=== PATIENT | female | born 1985 | race Caucasian/White ===

== ENCOUNTER 2016-11-19 16:28 | Emergency (ER) | payer OTHER ==
[~2016-11-19] VITALS: Ht 157.5 cm; Wt 93.1 kg
[~2016-11-19 16:28] MED LIST: IBUP600T44 PO; LORA-741 PO
[2016-11-19 16:31] VITALS: Ht 157.5 cm; Wt 93.1 kg
[2016-11-19] MEDS ORDERED: MoRPHine SULFATE 4 MG/ML 1 ML CARP\\VIAL IV STA (17:26)
[2016-11-19] MEDS ORDERED: ONDANSETRON INJ 2 MG/ML 2 ML VIAL IV STA (17:26)
[2016-11-19 17:47] LABS: BASO % 0.2 %; BASO ABS # 0.03 K/uL (0-0.2); COMPLETE YES; EOS % 0.8 %; HEMATOCRIT 38.9 % (37-47); IG% 0.2 %; LYMPH % 25.5 %; LYMPH ABS # 3.61 K/uL (1.2-3.4); MEAN CELL VOLUME 89.2 fL (80-100); MEAN CORPUSCULAR HEMOGLOBIN 29.6 pg (25-34); MEAN CORPUSCULAR HGB CONC 33.2 g/dl (32-36); MONO % 4.4 %; NEUT % 68.9 %; PLATELET COUNT 351 K/uL (130-400); RED BLOOD COUNT 4.36 M/uL (4.2-5.4); WHITE BLOOD COUNT 14.18 K/uL (4.8-10.8)
[2016-11-19 17:49] LABS: URINE APPEARANCE CLEAR (CLEAR); URINE BILIRUBIN NEG (NEG); URINE COLOR YELLOW; URINE NITRITE NEG (NEG); URINE PH 5.5 (4.5-7.5); URINE SPECIFIC GRAVITY 1.001 (1.000-1.030); UROBILINOGEN NEG (NEG)
[2016-11-19 17:51] LABS: MANUAL MICROSCOPIC REQUIRED? NO; REVIEW REQ? NO
[2016-11-19 18:06] LABS: ALT/SGPT 33 U/L (12-78); AST/SGOT 22 U/L (15-37); BLOOD UREA NITROGEN 12 mg/dl (7-18); BUN/CREATININE RATIO 16.4 (10-20); CALCIUM 8.8 mg/dl (8.5-10.1); CARBON DIOXIDE 28 mmol/L (21-32); CHLORIDE 105 mmol/L (98-107); CREATININE 0.75 mg/dl (0.60-1.20); GLUCOSE 119 mg/dl (70-99); POTASSIUM 3.7 mmol/L (3.5-5.1); SODIUM 141 mmol/L (136-145)
[2016-11-19 18:08] LABS: ALKALINE PHOSPHATASE 78 U/L (45-117)
--- NOTE | 2016-11-19 18:40 | DIAGNOSTIC IMAGING REPORT ---
Right upper quadrant ultrasound GALLBLADDER-ABD LIMITED CLINICAL HISTORY: eval for biliary obstruction pain. Nausea. TECHNIQUE: Ultrasound COMPARISON STUDY: None FINDINGS: Very limited study due to patient body habitus. Fatty infiltration of liver. Prior cholecystectomy. Nondiagnostic evaluation of the biliary ductal system. Nondiagnostic study of the pancreas. Right kidney is negative for hydronephrosis. IMPRESSION: Near nondiagnostic study due to patient body habitus and overlying bowel content. Fatty infiltration of liver. . Prior cholecystectomy. Electronically signed by: Roaul Ryan M.D. 11/19/2016 6:38 PM
[2016-11-19 19:00] VITALS: TEMP 36.9
[2016-11-19 19:14] VITALS: BP 124/63; PULSE 91; O2SAT 96
--- NOTE | 2016-11-19 23:06 | EMERGENCY ROOM VISIT NOTE ---
History Report prepared by Jenny: Val Lopez Under the Supervision of: Dr. Adalberto Verduzco M.D. First contact with patient: 17:18 Chief Complaint: ABDOMINAL PAIN Stated Complaint: UPPER ABDOMINAL PAIN Nursing Triage Summary: Pt c/o RUQ abd pain x 2 weeks, worsening over the past few days. Nausea and Vomiting. Gallbladder removed in 2005, 2011 bile duct closed and they had to reopen it. History of Present Illness The patient is a 31 year old female who presents to the Emergency Room with complaints of constant burning abdominal pain beginning 3 days ago. The patient states that her pain has been on and off for about 2 weeks and over the last 3 days it has been constant burning with occasional shooting pain in her belly button. She reports that she had a cholecystectomy and had her biliary duct flushed out in 2011. She states that her pain was more sudden in 2011 than it has been this time. The patient notes associated chills and yellow diarrhea. She denies any vomiting, fever, urinary symptoms, chance of being , abnormal vaginal discharge or bleeding. She states that eating does not worsen her pain. Source of History: patient Onset: 3 days ago Position: abdomen Quality: burning Timing: constant Associated Symptoms: + chills, + diarrhea (yellow), No fevers, No urinary symptoms, No vomiting Note: She denies any chance of being , abnormal vaginal discharge or bleeding. Review of Systems See HPI for pertinent positives & negatives. A total of 10 systems reviewed and were otherwise negative. Past Medical & Surgical Medical Problems: (1) Calculus Of Ureter (2) Choledochlith Nos W Obst (3) Concussion (4) Dental caries (5) Endometriosis (6) Kidney stone (7) Pelvic pain (8) UTI (lower urinary tract infection) Surgical Problems: (1) History of cholecystectomy (2) History of ERCP (3) Hx of laparoscopy Social History Problems: (1) Atrial fibrillation Family History No significant family history Social History Smoking Status: Former Smoker Alcohol Use: none Drug Use: none Marital Status: Housing Status: lives with family Occupation Status: employed Current/Historical Medications No Active Prescriptions or Reported Meds Allergies Coded Allergies: No Known Allergies (Verified , 11/19/16) Physical Exam Vital Signs Date Time Temp Pulse Resp B/P Pulse Ox O2 Delivery O2 Flow Rate FiO2 11/19/16 19:14 91 16 124/63 96 11/19/16 19:00 36.9 91 16 124/63 96 Room Air 11/19/16 16:31 36.8 107 18 126/81 99 Room Air Physical Exam Constitutional: Vital signs reviewed. Eyes: Pupils are equal round reactive to light. Conjunctiva are noninjected. ENT: Pharynx is clear without erythema or exudate. Mucous membranes are moist. Neck supple without meningeal signs. Respiratory: Clear to auscultation bilaterally. Breath sounds are equal bilaterally. Cardiovascular: Regular rate and rhythm. No rubs or gallops. GI: Soft, nondistended with right upper quadrant tenderness. No tenderness in the lower abdomen. Bowel sounds are present. Musculoskeletal: No peripheral edema. Minimal right CVA tenderness. Integumentary: No cyanosis. No jaundice. Neurological: The patient is awake and alert. No focal deficits. Psychiatric: Normal affect. Medical Decision & Procedures ER Provider Diagnostic Interpretation: US results as stated below per my review and radiologist interpretation. Right upper quadrant ultrasound GALLBLADDER-ABD LIMITED FINDINGS: Very limited study due to patient body habitus. Fatty infiltration of liver. Prior cholecystectomy. Nondiagnostic evaluation of the biliary ductal system. Nondiagnostic study of the pancreas. Right kidney is negative for hydronephrosis. IMPRESSION: Near nondiagnostic study due to patient body habitus and overlying bowel content. Fatty infiltration of liver. . Prior cholecystectomy. Electronically signed by: Raoul Ryan M.D. 11/19/2016 6:38 PM Laboratory Results 11/19/16 17:35 Red Blood Count 4.36, Mean Corpuscular Volume 89.2, Mean Corpuscular Hemoglobin 29.6, Mean Corpuscular Hemoglobin Concent 33.2, Mean Platelet Volume 11.0, Neutrophils (%) (Auto) 68.9, Lymphocytes (%) (Auto) 25.5, Monocytes (%) (Auto) 4.4, Eosinophils (%) (Auto) 0.8, Basophils (%) (Auto) 0.2, Neutrophils # (Auto) 9.77, Lymphocytes # (Auto) 3.61, Monocytes # (Auto) 0.62, Eosinophils # (Auto) 0.12, Basophils # (Auto) 0.03 11/19/16 17:35 Test 11/19/16 17:35 White Blood Count 14.18 K/uL (4.8-10.8) Red Blood Count 4.36 M/uL (4.2-5.4) Hemoglobin 12.9 g/dL (12.0-16.0) Hematocrit 38.9 % (37-47) Mean Corpuscular Volume 89.2 fL (80-100) Mean Corpuscular Hemoglobin 29.6 pg (25-34) Mean Corpuscular Hemoglobin Concent 33.2 g/dl (32-36) Platelet Count 351 K/uL (130-400) Mean Platelet Volume 11.0 fL (7.4-10.4) Neutrophils (%) (Auto) 68.9 % Lymphocytes (%) (Auto) 25.5 % Monocytes (%) (Auto) 4.4 % Eosinophils (%) (Auto) 0.8 % Basophils (%) (Auto) 0.2 % Neutrophils # (Auto) 9.77 K/uL (1.4-6.5) Lymphocytes # (Auto) 3.61 K/uL (1.2-3.4) Monocytes # (Auto) 0.62 K/uL (0.11-0.59) Eosinophils # (Auto) 0.12 K/uL (0-0.5) Basophils # (Auto) 0.03 K/uL (0-0.2) RDW Standard Deviation 47.9 fL (36.4-46.3) RDW Coefficient of Variation 14.6 % (11.5-14.5) Immature Granulocyte % (Auto) 0.2 % Immature Granulocyte # (Auto) 0.03 K/uL (0.00-0.02) Urine Color YELLOW Urine Appearance CLEAR (CLEAR) Urine pH 5.5 (4.5-7.5) Urine Specific [place] 1.001 (1.000-1.030) Urine Protein NEG (NEG) Urine Glucose (UA) NEG (NEG) Urine Ketones NEG (NEG) Urine Occult Blood NEG (NEG) Urine Nitrite NEG (NEG) Urine Bilirubin NEG (NEG) Urine Urobilinogen NEG (NEG) Urine Leukocyte Esterase NEG (NEG) Urine Test NEG (NEG) Anion Gap 8.0 mmol/L (3-11) Est Creatinine Clear Calc Drug Dose 117.6 ml/min Estimated GFR () 124.8 Estimated GFR (Non- 107.7 BUN/Creatinine Ratio 16.4 (10-20) Calcium Level 8.8 mg/dl (8.5-10.1) Total Bilirubin 0.2 mg/dl (0.2-1) Direct Bilirubin < 0.1 mg/dl (0-0.2) Aspartate Amino Transf (AST/SGOT) 22 U/L (15-37) Alanine Aminotransferase (ALT/SGPT) 33 U/L (12-78) Alkaline Phosphatase 78 U/L (45-117) Total Protein 8.0 gm/dl (6.4-8.2) Albumin 3.7 gm/dl (3.4-5.0) Lipase 152 U/L (73-393) Laboratory results as reviewed by me. Medications Administered Medications (Trade) Dose Ordered Sig/Demi Route Start Time Stop Time Status Last Admin Dose Admin Morphine Sulfate (MoRPHine SULFATE INJ) 4 mg ONE STAT IV 11/19/16 17:26 11/19/16 17:27 DC 11/19/16 17:42 4 MG Ondansetron HCl (Zofran Inj) 4 mg NOW STAT IV 11/19/16 17:26 11/19/16 17:27 DC 11/19/16 17:41 4 MG ED Course 1718: The patient was evaluated in room C5. A complete history and physical exam was performed. 1726: Zofran Inj 4mg IV, Morphine Sulfate 4mg IV. 1858: I reevaluated the patient. She feels a lot better. We discussed her test results and she will follow up with GI. 1900: Upon reevaluation, the patient appeared to have improvement of her symptoms. I discussed tonight's findings with the patient. She verbalized agreement of the treatment plan. The patient was discharged home. Medical Decision This is a 23-year-old female who presents with right upper quadrant pain. Differential diagnosis includes delirium ductal dilatation, hepatitis, choledocholithiasis, cholangiocarcinoma, pancreatitis, peptic ulcer disease. I did perform a limited focused review of portions of the patient's old chart on the electronic medical record. The patient has had no recent pertinent visits to this hospital. I did evaluate the patient as noted above. IV access was established. I did treat the patient with IV morphine and Zofran. I did order and personally review the patient's urinalysis as described above. I did order and review the patient's blood work as noted in the electronic medical record. Her white blood cell count is slightly elevated. LFTs are unremarkable. Lipase is not elevated. I did order an ultrasound of the right upper quadrant. I did review the images myself as well as the radiology report as described above. This was a nearly nondiagnostic study due to body habitus and bowel artifact. I did reassess the patient. She states she is feeling much better. I did discuss the test results with her and her . She was advised follow closely with her field service supervisor and regular physician. She was advised to return should she have any worsening symptoms or develop any new symptoms as described below. Impression Primary Impression: RUQ abdominal pain Scribe Attestation The scribe's documentation has been prepared under my direct and personally reviewed by me in its entirety. I confirm that the note above accurately reflects all work, treatment, procedures, and medical decision making performed by me. Departure Information Dispostion Home / Self-Care Prescriptions No Active Prescriptions or Reported Meds Referrals Clare Vasquez C.R.N.P (PCP) Forms HOME CARE DOCUMENTATION FORM, IMPORTANT VISIT INFORMATION, My [facility] Patient Instructions A Signature Page, ED Abd Pain Unkn Cause Fem Additional Instructions You have been examined and treated today on an emergency basis only. This is not a substitute for, or an effort to provide, complete comprehensive medical care. It is impossible to recognize and treat all injuries or illnesses in a single emergency department visit. It is therefore important that you follow up closely with your physician and field service supervisor. Call as soon as possible for an appointment. Return for worsening symptoms or if you develop fever, vomiting, or any other concerning symptoms.
[2017-06-08] MEDS ORDERED: HYDR-5688 PO (15:30)
== END 2016-11-19 19:15 | disposition home or self-care (01) ==
LOC: C.EDB 16:30 → C.EDC 19:15
DX: R10.11 Right upper quadrant pain (principal); R19.7 Diarrhea, unspecified

== ENCOUNTER 2016-11-22 09:11 | Emergency (ER) | payer OTHER ==
[~2016-11-22] VITALS: Ht 157.5 cm; Wt 91.5 kg
[2016-11-22 09:13] VITALS: TEMP 37.3; Ht 157.5 cm; Wt 91.5 kg
[2016-11-22] MEDS ORDERED: PROMETHAZINE HCL INJ 25 MG in SODIUM CHLORIDE 0.9% 50ML 50 ML IV STA (09:37)
[2016-11-22] MEDS ORDERED: KETOROLAC TROMETHAMINE 30 MG/ML VIAL IV STA (09:37)
[2016-11-22 10:24] LABS: BASO % 0.1 %; BASO ABS # 0.02 K/uL (0-0.2); COMPLETE YES; EOS % 0.5 %; HEMATOCRIT 41.4 % (37-47); IG% 0.3 %; LYMPH % 7.6 %; LYMPH ABS # 1.04 K/uL (1.2-3.4); MEAN CELL VOLUME 87.3 fL (80-100); MEAN CORPUSCULAR HEMOGLOBIN 28.7 pg (25-34); MEAN CORPUSCULAR HGB CONC 32.9 g/dl (32-36); MONO % 3.8 %; NEUT % 87.7 %; PLATELET COUNT 332 K/uL (130-400); RED BLOOD COUNT 4.74 M/uL (4.2-5.4); WHITE BLOOD COUNT 13.62 K/uL (4.8-10.8)
--- NOTE | 2016-11-22 10:33 | DIAGNOSTIC IMAGING REPORT ---
CHEST 2 VIEWS ROUTINE CLINICAL HISTORY: Right lower chest pain and burning. Nausea. COMPARISON STUDY: Chest CT and chest radiograph August 06, 2016. FINDINGS: There are cholecystectomy clips. Lung volumes are normal. Lungs are clear. No pneumothorax or pleural effusion is present. Cardiac size is normal. Mediastinal contours are normal. There is no evidence of pulmonary edema. IMPRESSION: No acute cardiopulmonary findings. Electronically signed by: Ameya Gee M.D. 11/22/2016 10:31 AM Dictated Date/Time: 11/22/2016 10:31 AM
[2016-11-22 10:42] LABS: CREATININE 0.65 mg/dl (0.60-1.20); POTASSIUM 3.7 mmol/L (3.5-5.1)
[2016-11-22 10:45] LABS: ALB/GLOB RATIO 0.8 (0.9-2)
[2016-11-22] MEDS ORDERED: ONDANSETRON INJ 2 MG/ML 2 ML VIAL IV STA (11:29)
[2016-11-22] MEDS ORDERED: SUCR1TAB29 PO (13:19)
[2016-11-22] MEDS ORDERED: OMEP20CA59 PO (13:19)
[2016-11-22] MEDS ORDERED: PROM25TA9 PO (13:21)
[2016-11-22 13:32] VITALS: BP 122/61; PULSE 106; O2SAT 95
--- NOTE | 2016-11-27 09:27 | EMERGENCY ROOM VISIT NOTE ---
History First contact with patient: 09:23 Chief Complaint: ABDOMINAL PAIN Stated Complaint: UPPER RIGHT QUAD PAIN Nursing Triage Summary: Patient c/o 6/10 RUQ abdominal pain that radiates to back. C/o nausea and vomitting. Was here the other day with abdominal pain. States was not vomitting at that time. History of Present Illness The patient is a 31 year old female who presents to the Emergency Room with complaints of upper abdominal pain that has been present since last night. It is bilateral, right greater than left. She is nauseated and has vomited several times. She was here 3 days ago with similar symptoms but was not vomiting at that time. She previously had a cholecystectomy in 2005. 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 Her current pain feels similar to 2012, but states it came on more suddenly this time. She also notes intermittent diarrhea. She does have chills but no sweats. No UTI symptoms. No vaginal discharge. She has not been able to keep any food or liquid in for the last 24 hours. Her accompanies her today. Pain is 6/10. She had an ultrasound done 3 days ago of the gallbladder which was a nondiagnostic study due to body habitus and overlying bowel. White count was mildly elevated at 14.2. Review of Systems REVIEW OF SYSTEM: HEENT: No dizziness, visual problems, hearing loss, or tinnitus. There is no difficulty swallowing and no oral lesions are present. LYMPH: No adenopathy. PULMONARY: No cough, shortness of breath, sputum production or hemoptysis. CARDIOVASCULAR: No chest pain, palpitations, shortness of breath or peripheral edema. GASTROINTESTINAL: Positive diarrhea, nausea, vomiting, and abdominal pain. GENITOURINARY: No dysuria, frequency, urgency or nocturia. NEUROLOGIC: No weakness, muscle tenderness, epilepsy or history of neurological problems. MUSCULOSKELETAL: No history of joint tenderness/swelling. No history of arthritis or arthralgias. SKIN: No rashes or lesions. PSYCHIATRIC: No history of depression or mental illness. ENDOCRINE: No history of diabetes, thyroid disorders, or abnormal hair growth. Past Medical/Surgical History Medical Problems: (1) Calculus Of Ureter (2) Choledochlith Nos W Obst (3) Concussion (4) Dental caries (5) Endometriosis (6) Kidney stone (7) Pelvic pain (8) UTI (lower urinary tract infection) Surgical Problems: (1) History of cholecystectomy (2) History of ERCP (3) Hx of laparoscopy Social History Problems: (1) Atrial fibrillation Family History No significant family history Social History Smoking Status: Never Smoker Smokeless Tobacco Use: No Alcohol Use: none Drug Use: none Marital Status: Housing Status: lives with family Occupation Status: employed Current/Historical Medications Scheduled Omeprazole (Prilosec), 20 MG PO DAILY Sucralfate (Carafate), 1 TAB PO BIDM Scheduled PRN Promethazine Hcl (Phenergan), 25 MG PO Q6H PRN for Nausea Allergies Coded Allergies: No Known Allergies (Verified , 11/22/16) Physical Exam Vital Signs Date Time Temp Pulse Resp B/P Pulse Ox O2 Delivery O2 Flow Rate FiO2 11/22/16 13:32 106 18 122/61 95 11/22/16 12:44 110 18 121/70 94 Room Air 11/22/16 11:02 104 20 123/70 96 Room Air 11/22/16 09:13 37.3 121 18 122/75 100 Room Air Pain Rating (0-10): 5.0 Physical Exam Gen.: Well-developed, well-nourished, young white female, in obvious discomfort. Laying on a bed. Alert and oriented. Skin:Warm and dry with good turgor. No rashes or lesions. No ecchymosis or erythema. The patient is not diaphoretic. No abrasions. HEENT: Normocephalic atraumatic. Eyes PERRLA, EOMI. No conjunctiva or scleral injection. Nares patent bilaterally without turbinate enlargement. No significant drainage. No epistaxis. Oropharynx without erythema or exudate. Uvula midline, oral mucosa moist. No lesions present. Heart: Heart RRR. No MGR. Peripheral pulses are 2+. Lungs: Lungs are clear to auscultation. No crackles rhonchi or wheezing. Good air movement. The patient is able to take a deep breath. Abdomen: Abdomen was inspected, auscultated, and palpated. Bowel sounds present x 4. Obese. Soft, diffuse tenderness in the epigastric and right upper quadrant areas to palpation. No lower abdominal discomfort with palpation. No hepato- splenomegaly. No masses noted. No rebound. No pain over McBurney's point. No CVA tenderness. Musculoskeletal: Gross motor function of the upper and lower extremities is intact and unremarkable. Medical Decision & Procedures ER Provider Diagnostic Interpretation: Chest x-ray obtained today was read by radiology as unremarkable. Previous cholecystectomy clips are present. Laboratory Results 11/22/16 10:00 Red Blood Count 4.74, Mean Corpuscular Volume 87.3, Mean Corpuscular Hemoglobin 28.7, Mean Corpuscular Hemoglobin Concent 32.9, Mean Platelet Volume 11.0, Neutrophils (%) (Auto) 87.7, Lymphocytes (%) (Auto) 7.6, Monocytes (%) (Auto) 3.8, Eosinophils (%) (Auto) 0.5, Basophils (%) (Auto) 0.1, Neutrophils # (Auto) 11.93, Lymphocytes # (Auto) 1.04, Monocytes # (Auto) 0.52, Eosinophils # (Auto) 0.07, Basophils # (Auto) 0.02 11/22/16 10:00 Test 11/22/16 10:00 White Blood Count 13.62 K/uL (4.8-10.8) Red Blood Count 4.74 M/uL (4.2-5.4) Hemoglobin 13.6 g/dL (12.0-16.0) Hematocrit 41.4 % (37-47) Mean Corpuscular Volume 87.3 fL (80-100) Mean Corpuscular Hemoglobin 28.7 pg (25-34) Mean Corpuscular Hemoglobin Concent 32.9 g/dl (32-36) Platelet Count 332 K/uL (130-400) Mean Platelet Volume 11.0 fL (7.4-10.4) Neutrophils (%) (Auto) 87.7 % Lymphocytes (%) (Auto) 7.6 % Monocytes (%) (Auto) 3.8 % Eosinophils (%) (Auto) 0.5 % Basophils (%) (Auto) 0.1 % Neutrophils # (Auto) 11.93 K/uL (1.4-6.5) Lymphocytes # (Auto) 1.04 K/uL (1.2-3.4) Monocytes # (Auto) 0.52 K/uL (0.11-0.59) Eosinophils # (Auto) 0.07 K/uL (0-0.5) Basophils # (Auto) 0.02 K/uL (0-0.2) RDW Standard Deviation 46.2 fL (36.4-46.3) RDW Coefficient of Variation 14.2 % (11.5-14.5) Immature Granulocyte % (Auto) 0.3 % Immature Granulocyte # (Auto) 0.04 K/uL (0.00-0.02) Anion Gap 10.0 mmol/L (3-11) Est Creatinine Clear Calc Drug Dose 134.4 ml/min Estimated GFR () 139.1 Estimated GFR (Non- 120.0 BUN/Creatinine Ratio 18.0 (10-20) Calcium Level 9.0 mg/dl (8.5-10.1) Total Bilirubin 0.4 mg/dl (0.2-1) Aspartate Amino Transf (AST/SGOT) 26 U/L (15-37) Alanine Aminotransferase (ALT/SGPT) 29 U/L (12-78) Alkaline Phosphatase 77 U/L (45-117) Total Protein 8.4 gm/dl (6.4-8.2) Albumin 3.7 gm/dl (3.4-5.0) Globulin 4.7 gm/dl (2.5-4.0) Albumin/Globulin Ratio 0.8 (0.9-2) Amylase Level 29 U/L (25-115) Lipase 115 U/L (73-393) CBC, amylase, lipase, and chem panel were obtained. White count is slightly improved at 13.6. Chem panel is essentially unremarkable. LFTs are normal. Amylase and lipase are normal. Medications Administered Medications (Trade) Dose Ordered Sig/Demi Route Start Time Stop Time Status Last Admin Dose Admin Promethazine HCl/ Sodium Chloride (Phenergan Inj/ Nss 50ml) 51 ml @ 204 mls/hr NOW STAT IV 11/22/16 09:37 11/22/16 09:51 DC 11/22/16 10:03 204 MLS/HR Ketorolac Tromethamine (Toradol Inj) 30 mg NOW STAT IV 11/22/16 09:37 11/22/16 09:43 DC 11/22/16 10:03 30 MG Ondansetron HCl (Zofran Inj) 4 mg NOW STAT IV 11/22/16 11:29 11/22/16 11:30 DC 1/7/17 11:34 4 MG Phenergan 25 mg IV, Toradol 30 mg IV, Zofran 4 mg IV ED Course Patient and her were educated regarding today's findings. Conservative care measures were discussed. IV was established. Labs were obtained. Chest x -ray was obtained. She just had an ultrasound of the gallbladder done 3 days ago. I do not think any additional imaging is required at this time. White count is slightly improved. She was given Phenergan 25 mg IV with some improvement in her nausea. She had no further vomiting while in the ED. She was given Toradol 30 mg IV for discomfort. There was moderate improvement in pain. She was given Zofran 4 mg IV with better control of her nausea. I did consult Dr. Cary regarding this patient. He recommended patient follow-up with Dr. Balderas, as she had seen him in the 2011 for the previous stricture. No urgent intervention, including ERCP, would be necessary at this time. She is afebrile with a minimal elevation in white count and has a recent normal right upper quadrant ultrasound. He did recommend that she start Carafate 1 tablet twice a day with meals and Prilosec once a day. She was agreeable to the plan. Return to the ED for any acute worsening of symptoms. Start with a bland diet and advance as tolerated. Prescription was given for Phenergan to be used 1 tablet every 6 hours as needed for nausea. Additional prescriptions were provided for the Carafate and Prilosec. Medical Decision Possibility of retained gallstone, duct stricture, pneumonia, cardiac source, bowel obstruction, viral gastroenteritis, and pancreatitis were considered among others Impression Primary Impression: RUQ abdominal pain Departure Information Dispostion Home / Self-Care Condition GOOD Prescriptions Promethazine Hcl (Phenergan) 25 Mg Tab 25 MG PO Q6H Y for Nausea, #12 TAB Prov: Yuval Salazar,P.A. 11/22/16 Omeprazole (Prilosec) 20 Mg Capcr 20 MG PO DAILY for 10 Days, #10 CAP Prov: Yuval Salazar,P.A. 11/22/16 Sucralfate (CARAFATE) 1 Gm Tab 1 TAB PO BIDM for 10 Days, #20 TAB 1 Refill Prov: Yuval Salazar,P.A. 11/22/16 Referrals Clare Vasquez C.R.N.P (PCP) Piter Balderas M.D. Forms HOME CARE DOCUMENTATION FORM, My [facility], IMPORTANT VISIT INFORMATION Patient Instructions A Signature Page Additional Instructions Start Carafate 1 tablet twice a day with meals Start Prilosec once a day Call Dr. Balderas on Thursday for follow-up this week Return to the ED for any acute worsening of symptoms Carver diet-advance as tolerated Phenergan 1 tablet every 6 hours as needed for nausea
[2017-06-08] MEDS ORDERED: HYDR-5688 PO (15:30)
== END 2016-11-22 13:35 | disposition home or self-care (01) ==
LOC: C.EDB 09:12
DX: R10.11 Right upper quadrant pain (principal); R11.2 Nausea with vomiting, unspecified; N80.9 Endometriosis, unspecified; Z87.448 Personal history of other diseases of urinary system; Z87.820 Personal history of traumatic brain injury; Z87.440 Personal history of urinary (tract) infections; Z90.6 Acquired absence of other parts of urinary tract

== ENCOUNTER 2017-02-03 08:46 | Emergency (ER) | payer OTHER ==
[~2017-02-03] VITALS: Ht 157.5 cm; Wt 90.0 kg
[~2017-02-03 08:46] MED LIST changes: -IBUP600T44 PO; -LORA-741 PO; +PROM25TA9 PO; +SUCR1TAB29 PO
[2017-02-03 08:53] VITALS: TEMP 36.6; Ht 157.5 cm; Wt 90.0 kg
[2017-02-03] MEDS ORDERED: IBUP-1050 PO (09:18)
[2017-02-03] MEDS ORDERED: PENI-82 PO (09:22)
[2017-02-03] MEDS ORDERED: HYDR-5688 PO (09:23)
--- NOTE | 2017-02-03 09:24 | EMERGENCY ROOM VISIT NOTE ---
ED Visit Note First contact with patient: 08:51 CHIEF COMPLAINT: Toothache HISTORY OF PRESENT ILLNESS: This 32-year-old female patient presented to the emergency department ambulatory with a progressive toothache for past 4 days. The patient believes it is coming from her left upper back molar. The pain is now steady and severe and radiates to the face. The patient has a dentist appointment set up approximately 2 weeks from now. They rate their pain a 7/10 and the ibuprofen and Tylenol they have been taking has not relieved the pain. Denies facial swelling or fever. The patient denies any discharge from the mouth. REVIEW OF SYSTEMS: A 6 system review of systems was completed with positives and pertinent negatives listed in the HPI. ALLERGIES: No known drug allergies MEDICATIONS: No chronic medications PMH: No significant past medical history. SOCIAL HISTORY: The patient was locally with her . Nonsmoker, denies alcohol use. PHYSICAL EXAM: Vitals are noted on the nurse's note and reviewed by myself. Vital signs stable. Temperature 36.6C orally. GENERAL: This is a 32-year-old female, in no acute distress, nondiaphoretic, well-developed well-nourished. Mouth: The left upper back molar tooth is very carious and the gum is swollen and tender around it, without any discharge or signs of an abscess. The remainder of the pharynx and tonsils are without erythema, edema, or exudate. The airway is patent. There is no facial swelling, cervical or submandibular lymphadenopathy. The patient appears uncomfortable and in pain. The patient has overall average dental hygiene. EARS: External auditory canals clear, tympanic membranes pearly ceja without erythema or effusion bilaterally. ED COURSE: The patient was evaluated as above. She was placed on penicillin for possible dental infection. She was given a prescription for [place]. The PDMP was queried and no red flags were identified. She was instructed that she must follow-up with a dentist for definitive care of her dental pain. The patient verbalized her understanding of my assessment and treatment plan and was discharged home in good condition. DIAGNOSIS: Odontalgia Problem List Medical Problems: (1) Calculus Of Ureter Status: Resolved (2) Chol[place]ochlith Nos W Obst Status: Resolved (3) Concussion Status: Resolved (4) Dental caries Status: Resolved (5) Endometriosis Status: Chronic (6) Kidney stone Status: Resolved (7) Pelvic pain Status: Resolved (8) UTI (lower urinary tract infection) Status: Resolved Surgical Problems: (1) History of cholecystectomy Status: Resolved (2) History of ERCP Status: Resolved (3) Hx of laparoscopy Status: Resolved Social History Problems: (1) Atrial fibrillation Status: Resolved Current/Historical Medications Scheduled Ibuprofen (Advil), 400-600 MG PO Q6H Penicillin V Potassium (Veetids), 500 MG PO QID Scheduled PRN Hydrocodone/Acetaminophen 5MG/325MG ([place] 5MG/325MG), 1-2 TABLET PO Q4H PRN for Pain Allergies Coded Allergies: No Known Allergies (Verified , 02/03/17) Vital Signs Date Time Temp Pulse Resp B/P Pulse Ox O2 Delivery O2 Flow Rate FiO2 02/03/17 09:32 77 18 130/79 96 02/03/17 08:53 36.6 87 18 159/80 99 Room Air Departure Information Impression Primary Impression: Dental caries Dispostion Home / Self-Care Condition GOOD Prescriptions Hydrocodone/Acetaminophen 5MG/325MG ([place] 5MG/325MG) Tab 1-2 TABLET PO Q4H Y for Pain, #10 TAB For Initial Treatment Prov: Cayla Odom PA-C 02/03/17 Penicillin V Potassium (Veetids) 500 Mg Tab 500 MG PO QID, #40 TAB Prov: Cayla Odom PA-C 02/03/17 Referrals Clare Vasquez C.R.N.P (PCP) Patient Instructions My [facility] Additional Instructions You have been treated in the Emergency Department for Dental Pain. You have been prescribed [place] to be used for pain control. This is a narcotic medication. You cannot drive or consume alcohol while on this medicine. This medicine should only be used for pain that cannot be controlled with over-the- counter pain medicines. You were prescribed Pen VK to be taken as prescribed. This is an antibiotic. All antibiotics have the potential to cause diarrhea. Stop this medication and contact a medical provider if you were to develop any significant adverse side effects including: wheezing, shortness of breath, passing out, vomiting, or a diffuse rash. Always take antibiotics as directed and COMPLETE the ENTIRE course regardless of the improvement of your symptoms. For pain control, you can use the following [id number] medicines (if >12 yo): - Regular strength (325mg/tab) Tylenol (acetaminophen) 2 tabs every 4-6 hours as needed. Do not exceed 12 tablets in a 24 hour period. Avoid taking more than 4 grams (4000 mg) of Tylenol per day. This includes any other sources of acetaminophen you may take on a regular basis. - Regular strength (200 mg/tab) Advil (ibuprofen) 1-2 tabs every 4-6 hours as needed. Do not exceed a dose of 3200 mg per day. Refrain from smoking cigarettes or using chewing tobacco until you have been evaluated by your dentist. Keeping beverages lukewarm and consuming soft foods can decrease your pain. Warm compresses over the affected area may offer some relief. You MUST seek evaluation of your dental pain by a dentist following your visit to the Emergency Department. The Emergency Department is not capable of treating dental issues long-term. You should call your dentist as soon as possible to make an appointment for evaluation of your dental pain. Return to the emergency department if you develop the following symptoms despite treatment course outlined above: fever, intractable pain, increased redness, swelling, or purulent discharge.
[2017-02-03 09:32] VITALS: BP 130/79; PULSE 77; O2SAT 96
[2017-06-08] MEDS ORDERED: HYDR-5688 PO (15:30)
== END 2017-02-03 09:33 | disposition home or self-care (01) ==
LOC: C.EDB 08:47 → C.EDA 09:33
DX: K02.9 Dental caries, unspecified (principal); N80.9 Endometriosis, unspecified

== ENCOUNTER 2017-03-20 20:58 | Emergency (ER) | payer OTHER ==
[~2017-03-20] VITALS: Ht 157.5 cm; Wt 92.8 kg
[~2017-03-20 20:58] MED LIST changes: +HYDR-5688 PO; +IBUP-1050 PO; +PENI-82 PO; -PROM25TA9 PO; -SUCR1TAB29 PO
[2017-03-20 21:04] VITALS: TEMP 36.6; Ht 157.5 cm; Wt 92.8 kg
[2017-03-20] MEDS ORDERED: AMOXICILLIN 500 MG CAP PO STA (21:22)
[2017-03-20] MEDS ORDERED: HYDROCODONE/ACETAMOPHEN 5/325MG TAB PO STA (21:22)
[2017-03-20] MEDS ORDERED: NORCO 5/325MG HOME PACK PO ONE (21:30)
--- NOTE | 2017-03-20 21:37 | EMERGENCY ROOM VISIT NOTE ---
ED Visit Note First contact with patient: 21:15 CHIEF COMPLAINT: Tooth abscess HISTORY OF PRESENT ILLNESS: This 32-year-old female presents the ER with chief complaint of tooth pain and dental abscess. The patient states that she was seen at her dentist last Thursday for the same symptoms. At that time the abscess was much larger and she had left-sided facial swelling. The patient states that her dentist did not drain the abscess placed her on amoxicillin for 10 days. She states that the lump was completely gone at that she noticed it again yesterday and it has been getting progressively more painful and larger. She called her dentist today and she was instructed to come to the emergency room. REVIEW OF SYSTEMS: 6 system review was performed and was negative unless stated otherwise in history of present illness. PMH: The patient is healthy; kidney stones, cholecystectomy, endometriosis SOCIAL HISTORY: Patient lives with her and children. The patient denies any tobacco or alcohol use. PHYSICAL EXAM: Vital Signs: Were reviewed Reviewed Nurse's notes. GENERAL: 32- year-old white female appears in no acute distress. MENTAL Status: Alert and oriented 3. FACE: No erythema or edema noted. MOUTH: Left upper tooth with tenderness to percussion and a. There is a palpable firm lump superior and medial to the tooth . There is no central fluctuance. NECK: Supple, no lymphadenopathy noted EMERGENCY COURSE: The patient was evaluated. The patient was given [place] 5/325 mg 2 tablet by mouth for pain while in the emergency room. She was given a [place] home pack to take this evening if needed. She was given amoxicillin 500 mg by mouth while in the ER. The patient was discharged home in stable condition. DIAGNOSIS: Dental caries/dental abscess DISCHARGE INSTRUCTIONS & TREATMENT: Take amoxicillin as prescribed. Ibuprofen 600 mg every 6 hours with food for pain. Take [place] as needed for more severe pain. Do not drive while taken the [place]. Warm compresses to the left side of the face frequently. Follow-up with your dentist for definitive care. Problem List Medical Problems: (1) Calculus Of Ureter Status: Resolved (2) Choledochlith Nos W Obst Status: Resolved (3) Concussion Status: Resolved (4) Dental caries Status: Resolved (5) Endometriosis Status: Chronic (6) Kidney stone Status: Resolved (7) Pelvic pain Status: Resolved (8) UTI (lower urinary tract infection) Status: Resolved Surgical Problems: (1) History of cholecystectomy Status: Resolved (2) History of ERCP Status: Resolved (3) Hx of laparoscopy Status: Resolved Social History Problems: (1) Atrial fibrillation Status: Resolved Current/Historical Medications Scheduled Ibuprofen (Advil), 400-600 MG PO Q6H Penicillin V Potassium (Veetids), 500 MG PO QID Scheduled PRN Hydrocodone/Acetaminophen 5MG/325MG ([place] 5MG/325MG), 1-2 TABLET PO Q4H PRN for Pain Allergies Coded Allergies: No Known Allergies (Verified , 02/03/17) Vital Signs Date Time Temp Pulse Resp B/P Pulse Ox O2 Delivery O2 Flow Rate FiO2 03/20/17 21:04 36.6 87 18 143/86 98 Room Air Departure Information Referrals Clare Vasquez C.R.N.P (PCP) Patient Instructions My [facility]
[2017-03-20] MEDS ORDERED: HYDR-5688 PO (21:39)
[2017-03-20] MEDS ORDERED: AMOX500C3 PO (21:39)
[2017-03-20] MEDS ORDERED: AMOXICILLIN 250 MG CAP PO ONE (21:48)
[2017-03-20 22:04] VITALS: BP 135/80; PULSE 101; O2SAT 98
[2017-06-08] MEDS ORDERED: HYDR-5688 PO (15:30)
== END 2017-03-20 22:04 | disposition home or self-care (01) ==
LOC: C.EDB 21:00 → C.EDD 22:04
DX: K02.9 Dental caries, unspecified (principal); K04.7 Periapical abscess without sinus; N80.9 Endometriosis, unspecified; Z87.442 Personal history of urinary calculi

== ENCOUNTER → 2017-05-14 | Outpatient (CLI) | payer OTHER ==
[2017-05-14 13:20] LABS: BASO % 0.3 %; BASO ABS # 0.03 K/uL (0-0.2); COMPLETE YES; EOS % 0.8 %; HEMATOCRIT 39.5 % (37-47); IG% 0.1 %; LYMPH % 32.4 %; LYMPH ABS # 3.45 K/uL (1.2-3.4); MEAN CELL VOLUME 89.8 fL (80-100); MEAN CORPUSCULAR HEMOGLOBIN 28.4 pg (25-34); MEAN CORPUSCULAR HGB CONC 31.6 g/dl (32-36); MEAN PLATELET VOLUME 11.3 fL (7.4-10.4); MONO % 3.8 %; NEUT % 62.6 %; PLATELET COUNT 387 K/uL (130-400); WHITE BLOOD COUNT 10.66 K/uL (4.8-10.8)
== END | disposition home or self-care (01) ==
LOC: C.LAB1850 12:04
PROVIDERS: ATTEND Obstetrics & Gynecology
DX: N80.9 Endometriosis, unspecified (principal); Z01.812 Encounter for preprocedural laboratory examination

== ENCOUNTER 2017-06-08 05:20 | Observation (INO) | payer OTHER ==
[2017-05-14 13:20] LABS: BASO % 0.3 %; BASO ABS # 0.03 K/uL (0-0.2); COMPLETE YES; EOS % 0.8 %; HEMATOCRIT 39.5 % (37-47); IG% 0.1 %; LYMPH % 32.4 %; LYMPH ABS # 3.45 K/uL (1.2-3.4); MEAN CELL VOLUME 89.8 fL (80-100); MEAN CORPUSCULAR HEMOGLOBIN 28.4 pg (25-34); MEAN CORPUSCULAR HGB CONC 31.6 g/dl (32-36); MEAN PLATELET VOLUME 11.3 fL (7.4-10.4); MONO % 3.8 %; NEUT % 62.6 %; PLATELET COUNT 387 K/uL (130-400); WHITE BLOOD COUNT 10.66 K/uL (4.8-10.8)
[2017-05-25 08:00] VITALS: BMI 36.0
[~2017-06-08] VITALS: Ht 157.5 cm; Wt 92.0 kg
[2017-06-08] VITALS (10 sets, daily range): BP systolic 91–131; BP diastolic 63–79; PULSE 64–100; TEMP 36.6–36.8; O2SAT 96–98; Ht 157.5 cm; Wt 92.0 kg
[~2017-06-08 05:20] MED LIST changes: -HYDR-5688 PO; -IBUP-1050 PO; -PENI-82 PO; +PERCOCET HOME PACK PO SCH
[2017-06-08] MEDS: LACTATED RINGER'S 1000ML 1,000 ML IV SCH ×2 (05:56→14:00)
[2017-06-08] MEDS ORDERED: CEFAZOLIN 2000 MG/60 ML D5W 50 ML IV SCH (06:00)
[2017-06-08] MEDS ORDERED: LACTATED RINGER'S 1000ML 1,000 ML IV SCH ×2 (06:00→11:00)
[2017-06-08] MEDS ORDERED: DEXAMETHASONE SOD INJ 4 MG/ML VIAL IV PRN (06:30)
[2017-06-08] MEDS ORDERED: SCOPOLAMINE 1.5 MG TDSY TD ONE ×2 (06:30→06:58)
[2017-06-08] MEDS ORDERED: PROMETHAZINE HCL INJ 12.5 MG in SODIUM CHLORIDE 0.9% 50ML 50 ML IV PRN ×2 (06:30→09:15)
[2017-06-08] MEDS ORDERED: ATROPINE SULFATE 0.1 MG/ML 5ML SYR IV PRN (06:30)
[2017-06-08] MEDS ORDERED: HYDROmorphone INJ 1 MG/ML SYR IV PRN (06:30)
[2017-06-08] MEDS ORDERED: EpHEDrine SULFATE INJ 50 MG/ML AMP IV PRN (06:30)
[2017-06-08] MEDS ORDERED: ONDANSETRON INJ 2 MG/ML 2 ML VIAL IV PRN ×2 (06:30→09:15)
--- NOTE | 2017-06-08 06:57 | History & Physical Bridge Note ---
H&P Re-Evaluation Bridge Note: I have examined the patient, reviewed the History & Physical and in the interval since the performance of the History & Physical I have noted the following changes of clinical significance: No changes noted
[2017-06-08] MEDS ORDERED: GLYCOPYRROLATE INJ 0.2 MG/ML VIAL ONE (07:06)
[2017-06-08] MEDS ORDERED: MIDAZOLAM HCL 1 MG/ML 2ML VIAL ONE (07:06)
[2017-06-08] MEDS ORDERED: LIDOCAINE HCL 2% 2 ML VIAL (20MG/ML) ONE (07:06)
[2017-06-08] MEDS ORDERED: PROPOFOL IV EMULSION 10 MG/ML 20 ML VIAL IV ONE (07:06)
[2017-06-08] MEDS ORDERED: FENTANYL CITRATE INJ 50 MCG/1 ML 2 ML VIAL ONE ×3 (07:06→08:52)
[2017-06-08] MEDS ORDERED: DEXAMETHASONE SOD INJ 4 MG/ML VIAL ONE (07:06)
[2017-06-08] MEDS ORDERED: ROCURONIUM BROMIDE 10 MG/ML 5 ML VIAL ONE (07:06)
[2017-06-08] MEDS ORDERED: ONDANSETRON INJ 2 MG/ML 2 ML VIAL ONE (07:06)
[2017-06-08] MEDS ORDERED: NEOSTIGMINE METHYLSULFATE 5 MG/5 ML SYR ONE (07:06)
[2017-06-08] MEDS ORDERED: ACETAMINOPHEN 1000 MG/100 ML IV IV ONE (07:14)
[2017-06-08] MEDS ORDERED: CHECK SCOPOLAMINE PATCH PLACEMENT SCH (08:00)
[2017-06-08] MEDS ORDERED: PHENYLEPHRINE 100MCG/ML 5ML SYR ONE (08:10)
[2017-06-08] MEDS ORDERED: METHYLENE BLUE 0.5% 10 ML VIAL ONE (08:29)
[2017-06-08] MEDS: FENTANYL CITRATE INJ 50 MCG/1 ML 2 ML VIAL IV PRN ×4 (09:14→09:32)
[2017-06-08] MEDS ORDERED: ACETAMINOPHEN 325 MG TAB PO PRN (09:15)
[2017-06-08] MEDS ORDERED: OXYCODONE/ACETAMINOPHEN 5-325 TAB PO PRN (09:15)
[2017-06-08] MEDS ORDERED: KETOROLAC TROMETHAMINE 30 MG/ML VIAL IV. PRN (09:15)
[2017-06-08] MEDS ORDERED: MEPERIDINE HCL 50 MG/ML CARP IV PRN ×2 (09:15)
[2017-06-08] MEDS ORDERED: SIMETHICONE 80 MG CHEW PO PRN (09:15)
--- NOTE | 2017-06-08 09:20 | [facility] Post Operative Brief Note ---
Immediate Operative Summary Operative Date Jun 08, 2017. Pre-Operative Diagnosis Endometriosis Post-Operative Diagnosis Same as pre-operative Procedure(s) Performed Robotic assisted total laparoscopic hysterectomy with right salpingectomy and cystoscopy Surgeon Dr. Angela Walden MD Student Officer Surgeon(s) Dr. Danya Alarcon DO Estimated Blood Loss 25ml Findings Adhesions of bowel to L ovary and tube. Normal uterus, ovaries, appendix. Specimens A. Uterus, cervix, and right fallopian tube Complication(s) None Disposition Recovery Room / PACU
--- NOTE | 2017-06-08 09:57 | Anesthesiology Progress Note ---
Anesthesia Post Op Note Date & Time Jun 08, 2017 at 09:57 Vital Signs Pain Intensity: 3 Vital Signs Past 12 Hours Date Time Temp Pulse Resp B/P (MAP) Pulse Ox O2 Delivery O2 Flow Rate FiO2 06/08/17 09:45 36.1 76 13 108/67 98 Nasal Cannula 3 06/08/17 09:35 78 14 108/70 96 Nasal Cannula 3 06/08/17 09:25 63 12 109/81 100 Mask 8 06/08/17 09:15 68 12 122/63 100 Mask 10 06/08/17 09:06 36.4 105 18 121/59 100 Mask 10 06/08/17 05:48 36.7 90 18 131/79 (96) 98 Room Air Notes Mental Status: alert / awake / arousable, participated in evaluation Pt Amnestic to Procedure: Yes Nausea / Vomiting: adequately controlled Pain: adequately controlled Airway Patency, RR, SpO2: stable & adequate BP & HR: stable & adequate Hydration State: stable & adequate Anesthetic Complications: no major complications apparent
[2017-06-08] MEDS ORDERED: IV FLUIDS COMPLETED PRN (10:00)
[2017-06-08] MEDS: IBUPROFEN 600 MG TAB PO PRN ×2 (15:30→21:03)
[2017-06-08] MEDS ORDERED: HYDR-5688 PO (15:30)
--- NOTE | 2017-06-08 15:31 | Discharge Instructions ---
Discharge Instructions Date of Service Jun 08, 2017. Visit Reason for Visit: Endometriosis Discharge Discharge Diagnosis / Problem: Hysterectomy Discharge Goals Goal(s): Specific goals Activity Recommendations Activity Limitations: per Instructions/Follow-up section Anesthesia . Post Anesthesia Instructions: If you have had General Anesthesia or IV Sedation: * Do not drive today. * Resume driving when surgeon permits. * Do not make important decisions or sign legal documents today. * Call surgeon for: 1. Temperature elevations greater than 101 degrees F. 2. Uncontrollable pain. 3. Excessive bleeding. 4. Persistent nausea and vomiting. 5. Medication intolerance (nausea, vomiting or rash). * For nausea and vomiting use only clear liquids such as: tea, soda, bouillon until nausea subsides, then gradually increase diet as tolerated. * If you have any concerns or questions, call your surgeon's office. If physician is unavailable and it is an emergency, call 911 or go to the nearest emergency room. . Instructions / Follow-Up Instructions / Follow-Up POST OPERATIVE: BOWEL FUNCTION/MEDICATIONS: 1. Constipation pain and discomfort are the most common complaints 5-7 days after surgery. Points 2-6 address the things that can help. 2. Chewing gum can help stimulate the gut and help improve digestion and motility. 3. Milk of Magnesia 1-2 times per day until return of bowel function. 4. Colace is a stool softener that helps. Taking this 2-3 times per day until bowel function returns to normal is highly recommended. 5. Dulcolax is a laxative that may be used if several days have passed without a bowel movement. Alternatively Miralax may be used daily instead. 6. Drink plenty of fluids as this will also reduce constipation. 7. Narcotic pain medications will be prescribed by your physician. They are safe to use and we encourage you to use them. If you are not allergic, ibuprofen will also be prescribed. Many patients will be able to transition off of the narcotic medications to ibuprofen by postoperative day 3. ACTIVITY RECOMMENDATIONS: 1. Get plenty of rest and listen to your body. If you are tired, take a nap. 2. You may shower, but do not take a tub bath until you see your doctor at the 2 week post operative visit. 3. Absolutely NO intercourse and nothing in the vagina until you are examined by your doctor at the 6 week visit. At that visit it will be determined when such activities can be resumed. This can range from 6-12 weeks after your surgery depending on healing time. 4. The main physical activity in the first week should be walking. By the second week you can slowly increase activity. There are no limits on walking up and down stairs. 5. Do not lift more than 5-10 lbs for 4 weeks. Remember the "one-handed rule", i.e. if you can lift something with only one hand it's likely okay. 6. Minimize regional director of admissions like vacuuming and exercising for 4 weeks. "Overdoing it" can lead to incisions not healing, pain and vaginal bleeding , so again, listen to your body. 7. Driving can be resumed when you feel able. Do not drive within 24 hours of taking a narcotic medication. EXPECTATIONS: 1. Vaginal spotting, bleeding and discharge are common after surgery. There may even be an odor to the discharge which is often related to sutures used in the vagina. If you experience heavy vaginal bleeding, call the office number day or night [phone]. 2. Bladder discomfort is common after surgery from the catheter. This usually resolves in 1-2 weeks. 3. By the end of the 3rd or 4th week you should be feeling much better. It may take up to 6 weeks for your energy levels to return to normal. 4. Narcotic medications have side effects such as: dizziness, headache, nausea and/or vomiting. If you suspect your pain medication is causing problems, call our office and we may be able to prescribe an alternate medication. 5. The skin incisions are often covered with a liquid bandage. This will gradually peel off over time. CALL THE OFFICE IF YOU HAVE ANY OF THE FOLLOWIN. Temperature of 101 degrees or higher. 2. Severe abdominal or pelvic pain not relieved by pain medication. 3. Persistent nausea or vomiting. 4. Increased pain with urination or difficulty urinating. 5. Bright red bleeding that soaks more than 1 pad per hour. CONTACT PHONE NUMBERS: Main Office: [phone] Surgical Nurse: [phone] extension [phone] FOLLOW-UP: Post-Operative Appointments: * Individual instructions will have been given about the timing of your first examination, but this is usually at the end of the second week home. * You will need to call the office at soon after discharge to make the appointment for your post-op check-up if it has not already been scheduled. * Additional information regarding activity, sexual intercourse and when to return to work will be given at this appointment. WE WISH YOU A SPEEDY RECOVERY! Diet Recommendations Recommended Home Diet: resume previous diet Procedures Procedures Performed: Robotic assisted total laparoscopic hysterectomy with right salpingectomy and cystoscopy Pending Studies Studies pending at discharge: no Medical Emergencies . Who to Call and When: Medical Emergencies: If at any time you feel your situation is an emergency, please call 911 immediately. . Non-Emergent Contact Non-Emergency issues call your: Primary Care Provider . . "Provider Documentation" section prepared by Angela Walden. . [place] Drug Monitoring Program Search Results: patient reviewed within database, no issues identified
[2017-06-08] MEDS: OXYCODONE/ACETAMINOPHEN 5-325 TAB PO PRN ×2 (16:18→21:04)
[2017-06-08] MEDS ORDERED: NURSING VERBAL MED ORDER ONE (21:00)
[2017-06-08] MEDS ORDERED: PERCOCET HOME PACK PO ONE (21:00)
[2017-06-08] MEDS ORDERED: DOCUSATE SODIUM 100 MG CAP PO SCH (21:00)
--- NOTE | 2017-06-09 00:43 | OPERATIVE REPORT ---
DATE OF OPERATION: 06/08/2017 PREOPERATIVE DIAGNOSES: Endometriosis and menorrhagia. POSTOPERATIVE DIAGNOSES: Same. PROCEDURE: Robotic-assisted total laparoscopic hysterectomy with right salpingectomy and cystoscopy. SURGEON: Angela Walden MD. MANAGER BUSINESS BANKING: Danya Alarcon DO. ESTIMATED BLOOD LOSS: 25 URINE OUTPUT: 600 COMPLICATIONS: None. DISPOSITION: Stable to the recovery room. DESCRIPTION OF PROCEDURE: Suzanna was placed on the table in the dorsal lithotomy position with Yellofin stirrups, prepped and draped in standard sterile fashion, and a hard timeout was taken prior to proceeding. The VCare manipulator and Pisano were placed in the usual manner. Attention was then turned to the abdomen where an umbilical entry was made in an optical manner. The patient was then placed in steep Trendelenburg with full insufflation. Under direct visualization, right and left lower quadrant ports were placed. Visualization of the pelvic organs showed evidence of prior tubal ligation as expected, normal uterus and ovaries bilaterally, normal appearing appendix and cecum. There was some adhesion of the sigmoid colon over the left ovary obscuring the left fimbriated portion of tube. There was no obvious evidence of endometriosis aside from perhaps some peritoneal windows in the posterior cul-de-sac. The robot was docked in the usual manner and surgery began with dissection of the right fimbriated end of the fallopian tube off the ovary and the mesosalpinx. The right uteroovarian ligament was ligated and divided. The round ligament was ligated and divided, and the broad ligament was dissected to begin a bladder flap. Attention was turned to the left side where the decision was made to leave the bowel adhesions over the ovary which the patient was to be keeping and ignore the fimbriated end of the fallopian tube which was assumed to be encased within these bowel adhesions as the risk of injury during removal was greater than the benefit of removal. The left uteroovarian ligament was ligated and divided. The round ligament was ligated and divided, and the bladder flap was completed. The uterine arteries were ligated and divided bilaterally and then colpotomy was completed circumferentially. The uterus, cervix and right fallopian tube were delivered through the vagina en bloc and sent to pathology. A lap sponge was briefly introduced per vagina in order to blot any additional bleeding at the cuff and allow identification of small bleeders which were then addressed using electrocautery. The cuff was then closed using V-Loc suture in the usual manner. After closure, suction irrigation was used to assure good hemostasis at all working sites. The needle was retrieved from the abdomen through the robotic port. All ports were then removed. Cystoscopy was completed with administration of methylene blue dye showing a strong blue jet from each ureteral orifice. The bladder was then drained and closure of the laparoscopic ports proceeded with UR-6 Vicryl at the umbilical fascial layer and all sites closed using 4-0 Monocryl with a Dermabond dressing. At the completion of the procedure, the patient was transferred in stable condition to the PACU. I attest to the content of the Intraoperative Record and any orders documented therein. Any exception s are noted below.
--- NOTE | 2017-06-17 09:32 | Discharge Summary ---
Discharge Summary Date of Service Jun 17, 2017. Discharge Summary Admission Date: Jun 08, 2017 at 05:30 Discharge Date: Jun 08, 2017 Discharge Disposition: Home Principal Diagnosis: hysterectomy Immunizations: Have You Had Influenza Vaccine: No History of Tetanus Vaccine?: 8 years ago History of Pneumococcal: Unknown History of Hepatitis B Vaccine: Unknown Procedures: hysterectomy Hospital Course Total Time Spent: Less than 30 minutes This includes examination of the patient, discharge planning, medication reconciliation, and communication with other providers. Discharge Instructions Please refer to the electronic Patient Visit Report (Discharge Instructions) for additional information.
== END 2017-06-08 21:40 | disposition home or self-care (01) ==
LOC: C.ACU 05:20 → C.MS4N 05:30
PROVIDERS: ADMIT Obstetrics & Gynecology; ATTEND Obstetrics & Gynecology
DX: N72 Inflammatory disease of cervix uteri (principal); N84.0 Polyp of corpus uteri; N85.6 Intrauterine synechiae; N80.0 Endometriosis of uterus; N83.8 Other noninflammatory disorders of ovary, fallopian tube and broad ligament; Z87.891 Personal history of nicotine dependence

== ENCOUNTER 2017-06-15 16:09 | Emergency (ER) | payer OTHER ==
[~2017-06-15] VITALS: Ht 157.5 cm; Wt 91.8 kg
[~2017-06-15 16:09] MED LIST changes: +HYDR-5688 PO; -PERCOCET HOME PACK PO SCH
[2017-06-15 16:12] VITALS: TEMP 37.1; Ht 157.5 cm; Wt 91.8 kg
[2017-06-15] MEDS ORDERED: SODIUM CHLORIDE 0.9% 1000ML 1,000 ML IV STA (16:47)
[2017-06-15 17:08] LABS: BASO % 0.2 %; BASO ABS # 0.02 K/uL (0-0.2); COMPLETE YES; EOS % 3.9 %; HEMATOCRIT 37.5 % (37-47); IG% 0.3 %; LYMPH % 28.7 %; LYMPH ABS # 3.49 K/uL (1.2-3.4); MEAN CORPUSCULAR HEMOGLOBIN 28.6 pg (25-34); MEAN CORPUSCULAR HGB CONC 32.5 g/dl (32-36); MEAN PLATELET VOLUME 10.7 fL (7.4-10.4); MONO % 5.1 %; NEUT % 61.8 %; PLATELET COUNT 404 K/uL (130-400); RED BLOOD COUNT 4.26 M/uL (4.2-5.4); WHITE BLOOD COUNT 12.18 K/uL (4.8-10.8)
[2017-06-15 17:21] LABS: BUN/CREATININE RATIO 11.4 (10-20); C-REACTIVE PROTEIN 3.68 mg/dl (0-0.29); CALCIUM 9.1 mg/dl (8.5-10.1); CREATININE 0.74 mg/dl (0.60-1.20); POTASSIUM 3.7 mmol/L (3.5-5.1)
[2017-06-15] MEDS ORDERED: MUPIROCIN 2% OINT 22 GM TUBE EXT STA (17:35)
[2017-06-15] MEDS ORDERED: DiphenhydrAMINE HCL 50 MG/ML VIAL IV STA ×2 (17:35→17:41)
[2017-06-15] MEDS ORDERED: BCTROWC EXT (17:45)
[2017-06-15] MEDS ORDERED: CEPH500C PO (17:45)
[2017-06-15] MEDS ORDERED: CEPHALEXIN MONOHYDRATE 250 MG CAP PO ONE (17:45)
--- NOTE | 2017-06-15 17:45 | EMERGENCY ROOM VISIT NOTE ---
History Report prepared by Jenny: Felipe Pimentel Under the Supervision of: Dr. Adi Jensen M.D. First contact with patient: 16:40 Chief Complaint: INFECTION Stated Complaint: INFECTION IN INCISION AFTER SURGERY Nursing Triage Summary: hysterectomy last thursday, given ATB but broke out in rash. Incisions still reddened, drainage, painful. History of Present Illness The patient is a 32 year old female who presents to the Emergency Room with complaints of a worsening post-op abdominal wound infection beginning a few days ago. She had a hysterectomy one week ago, and states that the area now appears red and is painful. She was taking Cipro after the surgery, but states that she broke out into a rash a few days after she started taking the Cipro. The patient was seen by her OBGYN shortly prior to arrival and was told to stop taking Cipro and present to the ED. She was told that she should be evaluated by the ED and OBGYN should be consulted after the work-up is completed. She also complains of nausea and fatigue. The patient denies any SOB, leg swelling, vomiting, or fevers. Source of History: patient Onset: A few days ago Position: abdomen Quality: other (infection) Associated Symptoms: + nausea, + fatigue, No fevers, No SOB, No vomiting Note: The patient denies any leg swelling. Review of Systems See HPI for pertinent positives & negatives. A total of 10 systems reviewed and were otherwise negative. Past Medical & Surgical Medical Problems: (1) Calculus Of Ureter (2) Choledochlith Nos W Obst (3) Concussion (4) Dental caries (5) Endometriosis (6) Kidney stone (7) Pelvic pain (8) UTI (lower urinary tract infection) Surgical Problems: (1) History of cholecystectomy (2) History of ERCP (3) Hx of laparoscopy Social History Problems: (1) Atrial fibrillation Family History No significant family history Social History Smoking Status: Former Smoker Alcohol Use: none Drug Use: none Marital Status: Housing Status: lives with family Occupation Status: employed Current/Historical Medications Scheduled Cephalexin Monohydrate (Keflex), 500 MG PO QID Mupirocin (Bactroban 2% Oint), 1 APPLN EXT BID Allergies Coded Allergies: No Known Allergies (Verified , 06/15/17) Physical Exam Vital Signs Date Time Temp Pulse Resp B/P (MAP) Pulse Ox O2 Delivery O2 Flow Rate FiO2 06/15/17 17:52 83 18 121/83 100 Room Air 06/15/17 16:12 37.1 103 17 133/81 99 Room Air Physical Exam GENERAL: Patient is mildly anxious appearing and in no acute distress. HEENT: No acute trauma, normocephalic atraumatic, mucous membranes moist, no nasal congestion, no scleral icterus. NECK: No stridor, no adenopathy, no meningismus, trachea is midline. LUNGS: No dyspnea. Clear to auscultation and equal bilaterally. No wheeze, no rhonchi. HEART: Regular rate and rhythm. No murmurs, rubs, gallops appreciated. ABDOMEN: Soft, bowel sounds positive, no masses appreciated, no peritonitis. Three port incisions on the abdomen with surrounding erythema. Well circumscribed, and minimally raised. Mild gold-oozing of the umbilicus. Vague tenderness to palpation of the entire abdomen. BACK: No midline tenderness, no CVA tenderness EXTREMITIES: Normal motion all extremities, no cyanosis, no edema. NEUROLOGIC: Alert and oriented, no acute motor or sensory deficits, no focal weakness, cranial nerves grossly intact. SKIN: No rash, no jaundice, no diaphoresis. Medical Decision & Procedures Laboratory Results 06/15/17 16:57 Red Blood Count 4.26, Mean Corpuscular Volume 88.0, Mean Corpuscular Hemoglobin 28.6, Mean Corpuscular Hemoglobin Concent 32.5, Mean Platelet Volume 10.7, Neutrophils (%) (Auto) 61.8, Lymphocytes (%) (Auto) 28.7, Monocytes (%) (Auto) 5.1, Eosinophils (%) (Auto) 3.9, Basophils (%) (Auto) 0.2, Neutrophils # (Auto) 7.53, Lymphocytes # (Auto) 3.49, Monocytes # (Auto) 0.62, Eosinophils # (Auto) 0.48, Basophils # (Auto) 0.02 06/15/17 16:57 Test 06/15/17 16:57 06/15/17 17:04 White Blood Count 12.18 K/uL (4.8-10.8) Red Blood Count 4.26 M/uL (4.2-5.4) Hemoglobin 12.2 g/dL (12.0-16.0) Hematocrit 37.5 % (37-47) Mean Corpuscular Volume 88.0 fL (80-100) Mean Corpuscular Hemoglobin 28.6 pg (25-34) Mean Corpuscular Hemoglobin Concent 32.5 g/dl (32-36) Platelet Count 404 K/uL (130-400) Mean Platelet Volume 10.7 fL (7.4-10.4) Neutrophils (%) (Auto) 61.8 % Lymphocytes (%) (Auto) 28.7 % Monocytes (%) (Auto) 5.1 % Eosinophils (%) (Auto) 3.9 % Basophils (%) (Auto) 0.2 % Neutrophils # (Auto) 7.53 K/uL (1.4-6.5) Lymphocytes # (Auto) 3.49 K/uL (1.2-3.4) Monocytes # (Auto) 0.62 K/uL (0.11-0.59) Eosinophils # (Auto) 0.48 K/uL (0-0.5) Basophils # (Auto) 0.02 K/uL (0-0.2) RDW Standard Deviation 46.2 fL (36.4-46.3) RDW Coefficient of Variation 14.3 % (11.5-14.5) Immature Granulocyte % (Auto) 0.3 % Immature Granulocyte # (Auto) 0.04 K/uL (0.00-0.02) Anion Gap 5.0 mmol/L (3-11) Est Creatinine Clear Calc Drug Dose 117.2 ml/min Estimated GFR () 126.0 Estimated GFR (Non- 108.7 BUN/Creatinine Ratio 11.4 (10-20) Calcium Level 9.1 mg/dl (8.5-10.1) C-Reactive Protein 3.68 mg/dl (0-0.29) Bedside Lactic Acid Venous 1.56 mmol/L (0.90-1.70) Laboratory results as reviewed by me. Medications Administered Medications (Trade) Dose Ordered Sig/Demi Route Start Time Stop Time Status Last Admin Dose Admin Sodium Chloride 1,000 ml @ 999 mls/hr Q1H1M STAT IV 06/15/17 16:47 06/15/17 17:47 DC 06/15/17 16:47 999 MLS/HR Diphenhydramine HCl (Benadryl Inj) 50 mg NOW STAT IV 06/15/17 17:35 06/15/17 17:36 DC 06/15/17 17:49 50 MG Cephalexin Monohydrate (Keflex Cap) 500 mg NOW ONCE PO 06/15/17 17:45 06/15/17 17:46 DC 06/15/17 17:49 500 MG Mupirocin (Bactroban 2% Oint) 1 appln NOW STAT EXT 06/15/17 17:35 06/15/17 17:36 DC 06/15/17 17:58 1 APPLN ED Course 1641: The patient was evaluated in room A11B. A complete history and physical exam was performed. 1647: Ordered Sodium Chloride 1000 ml @ 999 mls/hr. 1735: Ordered Sodium Chloride 1000 ml @ 999 mls/hr, Benadryl Inj 50 mg IV. 1741: Ordered Benadryl Inj 50 mg IV, Keflex Cap 500 mg PO. Reevaluated the patient. I removed her Dermabond. Discussed results and discharge instructions: she verbalized understanding and agreement. She will follow up with her OBGYN. The patient is ready for discharge. Medical Decision Differential: Contact Dermatitis, Viral Exanthem, Urticaria, Allergic Reaction, SJS, Toxic Epidermal Necrolysis, Erythema Multiforme, Cellulitis, Scabies, HSV, Varicella, Zoster, Eczema, Staph Scalded Skin, Fungal, amongst other pathologies entertained. 32 yr old female with very well circumscribed rash around port sites on abdomen. No evidence of systemic infection. She does have some thornton drainage around umbilical incision though not abscess by exam. Suspect this may be localized infection vs significant localized reactive inflammatory response. Labs normal with just faint bump wbc and crp consistent with recent surgery. Suspect this is reactive to either OR prep or Dermabond. Reviewed with Dr Osorio advises removal of Dermabond (which I did), and start PO keflex just in case. Reviewed symptoms requiring RTED. Consults Time Called: 1725 Consulting Physician: Dr. Osorio -POOJA Returned Call: 1730 Discussed the patient's case. Dr. Osorio recommends that the patient have her Dermabond removed, and be started on Keflex and Bactroban, and given Benadryl. Impression Primary Impression: Skin irritation Additional Impressions: Post-operative pain Skin inflammation Scribe Attestation The scribe's documentation has been prepared under my direction and personally reviewed by me in its entirety. I confirm that the note above accurately reflects all work, treatment, procedures, and medical decision making performed by me. Departure Information Dispostion Home / Self-Care Prescriptions Mupirocin (Bactroban 2% Oint) 66 Appln/22 Gm Oint 1 APPLN EXT BID, #1 TUBE Prov: Adi Jensen M.D. 06/15/17 Cephalexin Monohydrate (Keflex) 500 Mg Cap 500 MG PO QID for 7 Days, #28 CAP Prov: Adi Jensen M.D. 06/15/17 Referrals Clare Vasquez, Diana.R.N.P (PCP) Patient Instructions My [facility] Additional Instructions This is likely due to reaction to Dermabond or skin prep during surgery. Use Benadryl as needed for rash/inflammation. Rash may take a week to resolve. Return if increased rash, fevers, vomiting, pain or other concerns. We are always here to help. Apply Bactroban ointment twice daily. Follow up with Gynecology. Problem Qualifiers
[2017-06-15 17:52] VITALS: BP 121/83; PULSE 83; O2SAT 100
== END 2017-06-15 18:01 | disposition home or self-care (01) ==
LOC: C.EDB 16:10 → C.EDA 18:01
DX: L30.9 Dermatitis, unspecified (principal); G89.18 Other acute postprocedural pain; I48.91 Unspecified atrial fibrillation; Z90.710 Acquired absence of both cervix and uterus; Z87.440 Personal history of urinary (tract) infections

== ENCOUNTER 2017-12-15 08:21 | Emergency (ER) | payer OTHER ==
[~2017-12-15] VITALS: Ht 157.5 cm; Wt 92.3 kg
[~2017-12-15 08:21] MED LIST changes: +BCTROWC EXT; -HYDR-5688 PO
[2017-12-15 08:26] VITALS: TEMP 36.8; Ht 157.5 cm; Wt 92.3 kg
[2017-12-15] MEDS ORDERED: ONDANSETRON INJ 2 MG/ML 2 ML VIAL IV STA (09:08)
[2017-12-15] MEDS ORDERED: MoRPHine SULFATE 4 MG/ML 1 ML CARP\\VIAL IV STA (09:08)
[2017-12-15] MEDS ORDERED: SODIUM CHLORIDE 0.9% 1000ML 1,000 ML IV STA (09:08)
[2017-12-15] MEDS ORDERED: OPTIRAY 320 IV PRN (09:15)
[2017-12-15 09:34] LABS: BASO % 0.5 %; BASO ABS # 0.04 K/uL (0-0.2); EOS % 0.8 %; EOS ABS # 0.07 K/uL (0-0.5); HEMATOCRIT 40.8 % (37-47); HEMOGLOBIN 13.4 g/dL (12.0-16.0); IG# 0.02 K/uL (0.00-0.02); LYMPH ABS # 2.62 K/uL (1.2-3.4); MEAN CELL VOLUME 87.4 fL (80-100); MEAN CORPUSCULAR HEMOGLOBIN 28.7 pg (25-34); MEAN CORPUSCULAR HGB CONC 32.8 g/dl (32-36); MEAN PLATELET VOLUME 10.4 fL (7.4-10.4); MONO % 5.6 %; MONO ABS # 0.47 K/uL (0.11-0.59); NEUT % 61.9 %; NEUT ABS # 5.22 K/uL (1.4-6.5); PLATELET COUNT 332 K/uL (130-400); RED CELL DISTRIBUTION WIDTH CV 15.4 % (11.5-14.5); RED CELL DISTRIBUTION WIDTH SD 49.5 fL (36.4-46.3); WHITE BLOOD COUNT 8.44 K/uL (4.8-10.8)
[2017-12-15 09:59] LABS: ALBUMIN 3.6 gm/dl (3.4-5.0); CREATININE 0.63 mg/dl (0.60-1.20); POTASSIUM 3.3 mmol/L (3.5-5.1)
[2017-12-15 10:01] LABS: TOTAL PROTEIN 8.3 gm/dl (6.4-8.2)
--- NOTE | 2017-12-15 10:34 | DIAGNOSTIC IMAGING REPORT ---
SOFT TISSUE NECK WITH CLINICAL HISTORY: 32 years-old Female presenting with R sided neck edema, pain under tongue, cough and diarrhea, pain and swelling since Thursday. TECHNIQUE: Multidetector CT of the neck was performed after the administration of intravenous contrast. IV contrast: 94 mL of Optiray 320. A dose lowering technique was used consistent with the principles of ALARA (as low as reasonably achievable). COMPARISON: None. CT DOSE (mGy.cm): The estimated cumulative dose is 554.27 mGy.cm. FINDINGS: Solution Maker topogram: Marker noted over the region of interest along the anterior right cervical region. Mild swelling, hyperemia, and heterogeneity of the submandibular glands. Submandibular and subcutaneous infiltration greater along the right ureter mild thickening of the right platysma muscle in the submandibular region. Small amount of fluid also noted superficial to the pretracheal musculature. No CT evidence of sialolithiasis. No infiltration or displacement of the paracentral fat planes. No effacement of the valleculae or piriform sinuses. No suspicious soft tissue nodularity specifically, the base of the tongue is normal appearing. Few small lymph nodes in the submandibular space bilaterally. No significant skin thickening. No fluid collection to suggest abscess. No periapical lucency or odontogenic abscess. Limited intracranial evaluation within normal limits. Orbits intact. Paranasal sinuses demonstrate mild mucosal thickening in the maxillary sinuses, left greater than right. Cervical spine normal. Lung apices clear. Vessels patent. IMPRESSION: 1. Findings most consistent with sialadenitis of the submandibular glands, right greater than left. No evidence of abscess or odontogenic infection. Electronically signed by: Mando Arenas M.D. 12/15/2017 10:33 AM Dictated Date/Time: 12/15/2017 10:24 AM
[2017-12-15] MEDS ORDERED: AMPICILLIN/SULBACTAM SOD INJ 3,000 MG in SODIUM CHLORIDE 0.9% 100ML 100 ML IV STA (10:57)
[2017-12-15] MEDS ORDERED: KETOROLAC TROMETHAMINE 30 MG/ML VIAL IV STA (11:05)
[2017-12-15] MEDS ORDERED: AMOX875T PO (11:53)
[2017-12-15] MEDS ORDERED: OXYC1TAB3 PO (11:53)
--- NOTE | 2017-12-15 11:54 | EMERGENCY ROOM VISIT NOTE ---
History First contact with patient: 08:42 Chief Complaint: NECK PAIN Stated Complaint: SWOLLEN GLAND UNDER NECK/TONGUE History of Present Illness The patient is a 32 year old female who presents to the Emergency Room via private vehicle accompanied by with complaints of "swollen gland in her neck/tongue". The patient states that this past she began with upper respiratory tract symptoms, and was treated for bronchitis with a Z-Shaji and prednisone. She states that this past Thursday night she began with swelling on the right side of her neck and ear pain. It is not getting worse, she feels as though her tongue as well as the right side of her neck is beginning to swell. She rates the overall pain as a 5/10. She notes it is difficult to swallow food and water. Her neck feels stiff, and she is also nauseous. There is no fever, chills, vomiting, chest pain or shortness of breath today. Review of Systems A complete 10-point Review of Systems was discussed with the patient, with pertinent positives and negatives listed in the History of Present Illness. All remaining Review of Systems questions can be considered negative unless otherwise specified. Past Medical/Surgical History Medical Problems: (1) Calculus Of Ureter (2) Choledochlith Nos W Obst (3) Concussion (4) Dental caries (5) Endometriosis (6) Kidney stone (7) Pelvic pain (8) UTI (lower urinary tract infection) Surgical Problems: (1) History of cholecystectomy (2) History of ERCP (3) Hx of laparoscopy Social History Problems: (1) Atrial fibrillation Family History No significant family history Social History Smoking Status: Never Smoker Alcohol Use: none Drug Use: none Marital Status: Housing Status: lives with family Occupation Status: employed Current/Historical Medications Scheduled Amoxicillin & Pot Clavulanate (Augmentin 875-125 mg), 1 TAB PO BID Scheduled PRN Oxycodone Ir (Roxicodone Ir), 1-2 TAB PO Q6 PRN for Pain Physical Exam Vital Signs Date Time Temp Pulse Resp B/P (MAP) Pulse Ox O2 Delivery O2 Flow Rate FiO2 12/15/17 12:26 88 18 122/80 97 12/15/17 10:24 86 18 124/78 99 12/15/17 08:26 36.8 86 20 133/81 99 Room Air Physical Exam VITAL SIGNS - Vital signs and nursing notes were reviewed. She is nontoxic in appearance. Stable. Afebrile. GENERAL -22-year-old female appearing her stated age who is in no acute distress. Communicates well with provider and answers questions appropriately. SKIN - Without rashes. No petechial rashes. There is swelling noted to the right side of the patient's superior neck at the jawline. HEAD - NC/AT. EYES - PERRL with EOMI bilaterally. Sclera anicteric. EARS - No deformities of external structures noted on gross examination bilaterally. No pain elicited with palpation of the tragus bilaterally. External auditory canals without discharge or otorrhea. Tympanic membranes pearly ceja without retraction or bulging. No fluid or purulent material visualized behind the TM. Handle of malleus, umbo, cone of light, pars tensa/ flaccid all easily visualized. NOSE - Midline and without cyanosis. No epistaxis or purulent drainage noted. MOUTH/OROPHARYNX - Without perioral cyanosis. NECK - Neck with FROM. Supple to palpation. Right-sided anterior cervical lymphadenopathy noted. There is edema noted to the patient's right superior anterior neck that is also tender to palpation. This is in the region of the anterior her parotid gland bridging the submandibular glands. No nuchal rigidity. Medical Decision & Procedures ER Provider Diagnostic Interpretation: SOFT TISSUE NECK WITH CLINICAL HISTORY: 32 years-old Female presenting with R sided neck edema, pain under tongue, cough and diarrhea, pain and swelling since Thursday. TECHNIQUE: Multidetector CT of the neck was performed after the administration of intravenous contrast. IV contrast: 94 mL of Optiray 320. A dose lowering technique was used consistent with the principles of ALARA (as low as reasonably achievable). COMPARISON: None. CT DOSE (mGy.cm): The estimated cumulative dose is 554.27 mGy.cm. FINDINGS: Overseamer topogram: Marker noted over the region of interest along the anterior right cervical region. Mild swelling, hyperemia, and heterogeneity of the submandibular glands. Submandibular and subcutaneous infiltration greater along the right ureter mild thickening of the right platysma muscle in the submandibular region. Small amount of fluid also noted superficial to the pretracheal musculature. No CT evidence of sialolithiasis. No infiltration or displacement of the paracentral fat planes. No effacement of the valleculae or piriform sinuses. No suspicious soft tissue nodularity specifically, the base of the tongue is normal appearing. Few small lymph nodes in the submandibular space bilaterally. No significant skin thickening. No fluid collection to suggest abscess. No periapical lucency or odontogenic abscess. Limited intracranial evaluation within normal limits. Orbits intact. Paranasal sinuses demonstrate mild mucosal thickening in the maxillary sinuses, left greater than right. Cervical spine normal. Lung apices clear. Vessels patent. IMPRESSION: 1. Findings most consistent with sialadenitis of the submandibular glands, right greater than left. No evidence of abscess or odontogenic infection. Electronically signed by: Mando Arenas M.D. 12/15/2017 10:33 AM Dictated Date/Time: 12/15/2017 10:24 AM Laboratory Results 12/15/17 09:22 Red Blood Count 4.67, Mean Corpuscular Volume 87.4, Mean Corpuscular Hemoglobin 28.7, Mean Corpuscular Hemoglobin Concent 32.8, Mean Platelet Volume 10.4, Neutrophils (%) (Auto) 61.9, Lymphocytes (%) (Auto) 31.0, Monocytes (%) (Auto) 5.6, Eosinophils (%) (Auto) 0.8, Basophils (%) (Auto) 0.5, Neutrophils # (Auto) 5.22, Lymphocytes # (Auto) 2.62, Monocytes # (Auto) 0.47, Eosinophils # (Auto) 0.07, Basophils # (Auto) 0.04 12/15/17 09:22 Test 12/15/17 09:22 White Blood Count 8.44 K/uL (4.8-10.8) Red Blood Count 4.67 M/uL (4.2-5.4) Hemoglobin 13.4 g/dL (12.0-16.0) Hematocrit 40.8 % (37-47) Mean Corpuscular Volume 87.4 fL (80-100) Mean Corpuscular Hemoglobin 28.7 pg (25-34) Mean Corpuscular Hemoglobin Concent 32.8 g/dl (32-36) Platelet Count 332 K/uL (130-400) Mean Platelet Volume 10.4 fL (7.4-10.4) Neutrophils (%) (Auto) 61.9 % Lymphocytes (%) (Auto) 31.0 % Monocytes (%) (Auto) 5.6 % Eosinophils (%) (Auto) 0.8 % Basophils (%) (Auto) 0.5 % Neutrophils # (Auto) 5.22 K/uL (1.4-6.5) Lymphocytes # (Auto) 2.62 K/uL (1.2-3.4) Monocytes # (Auto) 0.47 K/uL (0.11-0.59) Eosinophils # (Auto) 0.07 K/uL (0-0.5) Basophils # (Auto) 0.04 K/uL (0-0.2) RDW Standard Deviation 49.5 fL (36.4-46.3) RDW Coefficient of Variation 15.4 % (11.5-14.5) Immature Granulocyte % (Auto) 0.2 % Immature Granulocyte # (Auto) 0.02 K/uL (0.00-0.02) Anion Gap 6.0 mmol/L (3-11) Est Creatinine Clear Calc Drug Dose 138.1 ml/min Estimated GFR () 139.5 Estimated GFR (Non- 120.4 BUN/Creatinine Ratio 19.0 (10-20) Lactic Acid Level 1.2 mmol/L (0.4-2.0) Calcium Level 9.0 mg/dl (8.5-10.1) Total Bilirubin 0.3 mg/dl (0.2-1) Aspartate Amino Transf (AST/SGOT) 18 U/L (15-37) Alanine Aminotransferase (ALT/SGPT) 34 U/L (12-78) Alkaline Phosphatase 78 U/L (45-117) Total Protein 8.3 gm/dl (6.4-8.2) Albumin 3.6 gm/dl (3.4-5.0) Globulin 4.7 gm/dl (2.5-4.0) Albumin/Globulin Ratio 0.8 (0.9-2) Medications Administered Medications (Trade) Dose Ordered Sig/Demi Route Start Time Stop Time Status Last Admin Dose Admin Morphine Sulfate (MoRPHine SULFATE INJ) 4 mg NOW STAT IV 12/15/17 09:08 12/15/17 09:10 DC 12/15/17 09:22 4 MG Ondansetron HCl (Zofran Inj) 4 mg NOW STAT IV 12/15/17 09:08 12/15/17 09:10 DC 12/15/17 09:22 4 MG Sodium Chloride 1,000 ml @ 999 mls/hr Q1H1M STAT IV 12/15/17 09:08 12/15/17 10:08 DC 12/15/17 09:23 999 MLS/HR Ampicillin Sodium/ Sulbactam Sodium 3000 mg/Sodium Chloride 108 ml @ 200 mls/hr NOW STAT IV 12/15/17 10:57 12/15/17 11:29 DC 12/15/17 11:18 200 MLS/HR Ketorolac Tromethamine (Toradol Inj) 30 mg NOW STAT IV 12/15/17 11:05 12/15/17 11:06 DC 12/15/17 11:58 30 MG Medical Decision Patient was seen and evaluated as above. She presents to us today with right anterior neck swelling. There is tenderness upon palpation underneath the right side of the patient's tongue. Although that she likely is not presenting like Nithin angina, concern was over potential etiologies therefore IV access was initiated, and a CT scan was performed of the neck. She denies chance of . She was given morphine for pain while she was here in the emergency department and fluids. There is no concern of leukocytosis or anemia. There is hypokalemia noted upon her metabolic panel. At this time the CT scan revealed sialoadenitis of the patient's submandibular glands. I suspect that this could be bacterial in nature, however there are no stones. She was given Toradol for pain. She was given Unasyn IV. She was discharged home up on Augmentin given her nontoxic appearance, as well as her normal white blood cell count and vital signs. She is to follow with the family doctor closely, return for worsening symptoms which she was certainly educated upon. She'll be given a short course of oxycodone for her pain. She was educated upon management, educated upon worrisome symptoms in which to return, had questions about discharge, and was discharged home in good condition. Case was discussed with the attending physician who also personally evaluated the patient. There were no red flags identified and the [place] drug monitoring system. In evaluation and treatment of this patient the following differential diagnoses were entertained: Sialoadenitis, parotitis, supportive parotitis, Nithin angina, among others. Impression Primary Impression: Sialadenitis Additional Impression: Hypokalemia Departure Information Dispostion Home / Self-Care Condition GOOD Prescriptions Oxycodone Ir (Roxicodone Ir) 5 Mg Tab 1-2 TAB PO Q6 Y for Pain, #15 TAB For Initial Treatment Prov: Emerson uQinn PA-C 12/15/17 Amoxicillin & Pot Clavulanate (Augmentin 875-125 mg) 1 Tab Tab 1 TAB PO BID for 10 Days, #20 TAB Prov: Emerson Quinn PA-C 12/15/17 Referrals Clare Vasquez C.R.N.P (PCP) David Menard M.D. Patient Instructions My [facility] Additional Instructions You have been treated in the Emergency Department for facial pain. You have received pain medicine in the emergency department which impairs your ability to operate a vehicle. It is illegal for you to drive after receiving these medicines. You have been prescribed Oxy IR to be used for pain control. This is a narcotic medication. You cannot drive or consume alcohol while on this medicine. This medicine should only be used for pain that cannot be controlled with over-the- counter pain medicines. Augmentin (antibiotic) every 12 hours x 10 days For pain control, you can use the following [id number] medicines (if >12 yo): - Regular strength (325mg/tab) Tylenol (acetaminophen) 2 tabs every 4-6 hours as needed. Do not exceed 12 tablets in a 24 hour period. Avoid taking more than 3 grams (3000 mg) of Tylenol per day. This includes any other sources of acetaminophen you may take on a regular basis. - Regular strength (200 mg/tab) Advil (ibuprofen) 1-2 tabs every 4-6 hours as needed. Do not exceed a dose of 3200 mg per day. I do recommend calling your family doctor to schedule follow-up, but please do return if you do develop worsening of the pain, swelling, fevers or chills. Thank you for your time Problem Qualifiers
[2017-12-15 12:26] VITALS: BP 122/80; PULSE 88; O2SAT 97
--- NOTE | 2017-12-15 14:49 | EMERGENCY ROOM VISIT NOTE ---
ED Visit Note First contact with patient: 08:42 I have personally evaluated this patient examined her and reviewed the pertinent labs and data. I have discussed the case with Emerson Quinn, the physician producer assistant and agree with the plan. Please refer to the PA note. This patient comes in after having some pain and swelling in the right side of her face. She has some mild tenderness under her tongue. There is no evidence clinically suggest Nithin's angina . she's not toxic and she speaking and swallowing without any difficulty no drooling. We did do a CT and there are findings consistent with sialoadenitis. No obstructive stone seen. We will put her on antibiotics and she should follow-up with her regular doctor closely but return to the ER if fever, shortness of breath, worsening of symptoms, any new problems or concerns.
== END 2017-12-15 12:29 | disposition home or self-care (01) ==
LOC: C.EDB 08:25
DX: K11.20 Sialoadenitis, unspecified (principal); E87.6 Hypokalemia; M54.2 Cervicalgia; H92.01 Otalgia, right ear; R11.0 Nausea; Z87.19 Personal history of other diseases of the digestive system; Z87.440 Personal history of urinary (tract) infections; Z87.442 Personal history of urinary calculi

== ENCOUNTER → 2017-12-24 | Outpatient (CLI) | payer OTHER ==
[~2017-12-24] MED LIST changes: +AMOX875T PO; -BCTROWC EXT; +OXYC1TAB3 PO
== END | disposition home or self-care (01) ==
LOC: C.LABPVFM 10:43
PROVIDERS: ATTEND Nurse Practitioner
DX: E87.6 Hypokalemia (principal)

== ENCOUNTER 2021-05-03 07:49 | Inpatient (IN) ==
[2021-05-03] MEDS ORDERED: KETOROLAC 30 MG/ML VIAL IV STA (08:05)
[2021-05-03] MEDS ORDERED: SODIUM CHLORIDE 0.9% 1000ML 500 ML IV ONE (08:05)
[2021-05-03] MEDS ORDERED: MoRPHine SULFATE 4 MG/ML 1 ML CARP\\VIAL IV STA (08:05)
[2021-05-03] MEDS ORDERED: CLINDAMYCIN 900 MG in DEXTROSE 5% 50 ML IV ONE (08:07)
[2021-05-03] MEDS ORDERED: metroNIDAZOLE 500 MG/100 ML BAG IV STA (08:08)
--- NOTE | 2021-05-03 08:12 | Emergency Department Note ---
History of Present Illness General Chief complaint: Facial Injury/Pain Stated complaint: INFECTED TOOTH/RIGHT SIDE OF FACE SWELLED Time Seen by Provider: 05/03/21 07:55 History of Present Illness Maximum Pain Intensity: 10 36-year-old female who presents to the emergency department for evaluation of a progressively worsening dental infection. The patient reports that she has been dealing with a right upper dental infection for the past 2.5 months. She was initially seen by her PCP, and referred to Dr. Piter Lopez in [place]. The patient reports that he no longer takes her insurance. She is awaiting an appointment with an oral surgeon in [place], [place], but that is not for an additional 3 months. The patient reports that she was seen in the emergency department last month, as well as 3 days ago, and reports that antibiotics only help the pain and discomfort for a few days before comes back. Patient now reports notable swelling about the right cheek and nose region. She also reports a headache. She denies sinus congestion, fever or chills. The patient rates her discomfort a 10 out of 10. Home Medications Medication Instructions Recorded Confirmed Type clindamycin HCl 300 mg PO TID 10 Days #30 cap 04/30/21 05/03/21 Rx hydrocodone 5 mg-acetaminophen 325 1 - 2 tab PO Q6H PRN #10 tab 05/01/21 Rx mg tablet escitalopram oxalate 20 mg PO QAM 05/03/21 05/03/21 History Allergies Allergy/AdvReac Type Severity Reaction Status Date / Time No Known Allergies Allergy Verified 05/03/21 08:13 Past Med/Surg History Medical History Anxiety and depression Endometriosis Herpes zoster Hirsutism Insomnia Nephrolithiasis Obesity Smoker Surgical History History of carpal tunnel release RIGHT History of cholecystectomy History of hysterectomy TLH and right salpingectomy, Dr. Walden Family History Mother Breast cancer Denies family history of Diabetes Social History Smoking Status: Current every day smoker Tobacco Type: Cigarettes Age Started Using Tobacco: 17; packs per day: 0.5; Years Smoked: 5; Second Hand Exposure: Yes; Do You Dip or Chew Tobacco: No; Tobacco Cessation Education Requested by Patient: No Hx Alcohol Use: No Hx Substance Use: No Preferred Language: Lao Communication Ability: Effective Visual Impairment: No Limitations Hearing Ability: Normal Front Desk Agent Required: No Beliefs That Will Affect Care: None marital status: Current Living Situation: Spouse Current Living Situation Comment: lives in [place] current occupational status: employed 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 How many Children do You have: 2 Other Information That Helps Us Care for You: No Feels Safe at Home: Yes Safety Concerns: Feels Safe At This Time Assistive Devices: None Review of Systems 10 system review was performed and was negative except for pertinent positives and negatives as indicated in history of present illness Physical Exam Vital Signs Vital Signs - 24 hr 05/03/21 07:52 05/03/21 09:02 Temperature 36.6 C Temperature Source Oral Pulse Rate 86 Pulse Rate [Finger] 62 Pulse Rhythm Regular Pulse Rhythm [Finger] Regular Pulse Strength Normal Pulse Strength [Finger] Normal Respiratory Rate 20 18 Respiratory Effort / Characteristics Non-Labored Spontaneous Non-Labored Spontaneous Respiratory Depth Normal Normal Respiratory Pattern Regular Regular Blood Pressure 135/85 Blood Pressure [Right Arm] 121/67 Blood Pressure Mean 101 Blood Pressure Mean [Right Arm] 85 Blood Pressure Position Sitting Blood Pressure Position [Right Arm] Lying Pulse Oximetry 97 95 Oxygen Delivery Method Room Air Room Air Sepsis Recent Fever Within 48 Hours No Sepsis New/Unexplained Change in Mental Status No Sepsis Action Taken by Nursing No Action Required CONSTITUTIONAL: Healthy and well nourished. Alert and oriented X 3. Patient appears in moderate discomfort. HEENT: Examination shows edema of the right maxillary region. No erythema noted. The area is tender to palpation with induration and no obvious fluctuance. Pupils equal, round and reactive. EOMs intact without discomfort. Examination of the oropharynx does not show any obvious gingival erythema, fluctuance or pointing. NECK: Full active range of motion without discomfort. LYMPHATICS: No cervical chain adenopathy. RESPIRATORY: Clear to auscultation bilaterally with no wheezing, crackles, rhonchi or stridor. CARDIOVASCULAR: Regular rate and rhythm with no murmurs, rubs or gallops. MUSCULOSKELETAL: Full range of motion of all joints without discomfort. INTEGUMENTARY: No rash or other significant dermatologic conditions noted. HEMATOLOGIC: No ecchymosis or petechiae. PSYCHIATRIC: Positive affect. NEUROLOGIC: Facial sensations are intact. Course Course Patient history and physical exam were performed. Nurses notes were reviewed. Vital signs were reviewed and were normal. IV access was established, and labs were drawn. The patient was hydrated with a liter of normal saline, and administered IV Toradol and morphine for pain. The patient was also administered IV clindamycin and Flagyl. Review of labs shows a mild leukocytosis with left shift and bandemia. CMP is otherwise grossly normal. CT with IV contrast of the facial bones shows evidence for multiple periapical abscesses, and an anterior maxillary facial abscess. Findings were discussed with Dr. Kemp, ED attending physician, as well as the patient. I did recommend consultation with maxillofacial surgery. The case was then discussed with Dr. Dewey Dickerson, who came to the emergency department to evaluate the patient, and agrees with admission and planned I&D procedure later today. The case was then further discussed with Dr. Mireles, [facility] Hospitalist, for further evaluation. The patient was administered IV Unasyn, and COVID-19 PCR test was negative. Please see the hospitalist and maxillofacial surgeon dictations for further treatment and final disposition. Administered Medications Potassium Chloride/Dextrose/Sod Cl (D5nss + 20meq Kcl) 20 meq in 1,000 mls @ 100 mls/hr IV .Q10H VAHE Stop: 05/04/21 07:29 Last Admin: 05/03/21 12:05 Dose: 100 mls/hr Documented by: [id number] Morphine Sulfate (Morphine Sulfate 2 Mg/Ml Carp) 2 mg IV Q3H PRN PRN Reason: Pain Stop: 05/17/21 13:03 Last Admin: 05/03/21 13:19 Dose: 2 mg Documented by: [id number] Ondansetron HCl (Ondansetron Inj 2 Mg/Ml 2 Ml Vial) 4 mg IV Q6H PRN PRN Reason: Nausea Stop: 06/02/21 13:03 Last Admin: 05/03/21 13:19 Dose: 4 mg Documented by: [id number] Discontinued Medications Sodium Chloride (Nss 1000ml) 500 mls @ 999 mls/hr IV .Q31M ONE Stop: 05/03/21 08:35 Last Infusion: 05/03/21 08:53 Dose: 0 mls/hr Documented by: [id number] Admin: 05/03/21 08:19 Dose: 999 mls/hr Documented by: [id number] Clindamycin Phosphate 900 mg/ (Dextrose) 56 mls @ 112 mls/hr IV ONE ONE Stop: 05/03/21 08:36 Last Infusion: 05/03/21 09:10 Dose: 0 mls/hr Documented by: [id number] Admin: 05/03/21 08:34 Dose: 112 mls/hr Documented by: [id number] Metronidazole (Flagyl) 500 mg in 100 mls @ 100 mls/hr IV NOW STA Stop: 05/03/21 09:07 Last Infusion: 05/03/21 09:24 Dose: 0 mls/hr Documented by: [id number] Admin: 05/03/21 08:18 Dose: 100 mls/hr Documented by: [id number] Ampicillin Sodium/Sulbactam Sodium 3,000 mg/ Sodium Chloride 108 mls @ 200 mls/hr IV NOW STA; Protocol Stop: 05/03/21 11:01 Last Infusion: 05/03/21 12:05 Dose: 0 mls/hr Documented by: [id number] Admin: 05/03/21 11:25 Dose: 200 mls/hr Documented by: [id number] Ioversol (Optiray 320 100ml) 95 ml IV ONCE ONE Stop: 05/03/21 09:11 Last Admin: 05/03/21 09:10 Dose: 95 ml Documented by: [id number] Ketorolac Tromethamine (Ketorolac 30 Mg/Ml Vial) 30 mg IV NOW STA Stop: 05/03/21 08:06 Last Admin: 05/03/21 08:18 Dose: 30 mg Documented by: [id number] Morphine Sulfate (Morphine Sulfate 4 Mg/Ml 1 Ml Carp\Vial) 4 mg IV NOW STA Stop: 05/03/21 08:06 Last Admin: 05/03/21 08:19 Dose: 4 mg Documented by: [id number] Medical Decision Making Medical Records Attestation: I reviewed the patient's medical records. Home Medications Current Medication List: was personally reviewed by me Laboratory Data Attestation: I reviewed the patient's lab results. Result diagrams: 05/03/21 08:24 05/03/21 08:24 Lab Results 05/03/21 05/03/21 Range/Units 08:24 08:24 WBC 13.33 H (4.8-10.8) K/uL RBC 4.32 (4.2-5.4) M/uL Hgb 12.8 (12.0-16.0) g/dL Hct 39.8 (37-47) % MCV 92.1 (80-100) fL MCH 29.6 (25-34) pg MCHC 32.2 (32-36) g/dL RDW Std Deviation 50.8 H (36.4-46.3) fL RDW Coeff of Eddie 14.9 H (11.5-14.5) % Plt Count 416 H (130-400) K/uL MPV 10.7 H (7.4-10.4) fL Immature Gran % (Auto) 0.2 % Neut % (Auto) 76.9 % Lymph % (Auto) 17.6 % [place] % (Auto) 4.1 % Eos % (Auto) 1.0 % Baso % (Auto) 0.2 % Neut # (Auto) 10.25 H (1.4-6.5) K/uL Lymph # (Auto) 2.35 (1.2-3.4) K/uL [place] # (Auto) 0.55 (0.11-0.59) K/uL Eos # (Auto) 0.13 (0-0.5) K/uL Baso # (Auto) 0.02 (0-0.2) K/uL Immature Gran # (Auto) 0.03 H (0.00-0.02) K/uL Sodium 138 (136-145) mmol/L Potassium 3.8 (3.5-5.1) mmol/L Chloride 107 (98-107) mmol/L Carbon Dioxide 26 (21-32) mmol/L Anion Gap 5.0 (3-11) BUN 8 (7-18) mg/dl Creatinine 0.54 L (0.6-1.2) mg/dl Est Cr Clr Drug Dosing 157.0 ml/min Est GFR ( Amer) 142.7 ml/min Est GFR (Non-Af Amer) 123.1 ml/min BUN/Creatinine Ratio 14.2 (10-20) Glucose 94 (70-99) mg/dl Calcium 9.1 (8.5-10.1) mg/dl Total Bilirubin 0.3 (0.2-1) mg/dl AST 23 (15-37) U/L ALT 30 (12-78) U/L Alkaline Phosphatase 81 (45-117) U/L Total Protein 8.7 H (6.4-8.2) gm/dl Albumin 3.8 (3.4-5.0) gm/dl Globulin 4.9 H (2.5-4.0) gm/dl Albumin/Globulin Ratio 0.8 L (0.9-2) Specimen Hemolysis Imaging Data Attestation: I personally reviewed and interpreted this imaging study as follows: My Impression: My interpretation of a CT with IV contrast of the facial bones s hows evidence for multiple maxillary periapical abscesses, as well as a 2 cm abscess/facial cellulitis overlying the anterior maxillary region. Radiologist's Impression: Face CT 05/03/21 08:07 CT SCAN OF THE FACIAL BONES WITH IV CONTRAST CLINICAL HISTORY: Right maxillary dental abscess. COMPARISON STUDY: CT scan of the neck dated 05/08/2020. TECHNIQUE: High-resolution CT scan of the facial bones is performed following the IV administration of 95 cc of Optiray 320. Images are reviewed in the axial, sagittal, and coronal planes. IV contrast was administered without complication. A dose lowering technique was utilized adhering to the principles of ALARA. CT DOSE: 150.09 mGy.cm FINDINGS: The skeletal structures are well mineralized. There is no evidence of facial bone fracture. The bony orbits are intact and the orbital contents are within normal limits. The zygomatic arches, nasal bones, and pterygoid plates are preserved. The maxilla and mandible are intact. There are no layering blood products within the paranasal sinuses. Trace mucosal thickening is noted in the maxillary antra. The remaining paranasal sinuses are clear. The mastoid air cells are well pneumatized. The visualized calvarium and upper cervical spine are maintained. Partially imaged brain parenchyma is within normal limits. Numerous dental caries are identified. There are periapical lucencies seen involving both lateral maxillary incisors, a left maxillary molar, both lateral mandibular incisors, the left mandibular canine, and a right mandibular premolar. Several of these demonstrate cortical breakthrough. There is significant soft tissue inflammation in the premaxillary soft tissues. There is an abscess overlying the anterior maxilla to the right of midline seen on axial image #122 which measures 1.5 x 0.8 x 2.0 cm. The carotid arteries and jugular veins are patent. Prominent submandibular and submental lymph nodes are likely reactive. IMPRESSION: 1. There are numerous dental caries and periapical lucencies as above. Follow-up with dentistry is recommended. 2. There is evidence of facial cellulitis overlying the anterior maxilla with a 2 cm abscess as detailed above.. ACT 112: Negative or not required by law. Electronically signed by: Fco Funez M.D. 05/03/2021 9:39 AM Prescription Drug Monitoring [place] Drug Monitoring Program reviewed and findings noted below (The patient has received 2 previous opioid prescriptions from the emergency department for her dental pain over the past month.) Blood Pressure Blood Pressure Findings: Normal blood pressure MDM Narrative Patient presents to the emergency department with complaint of recurrent dental infections, and has now developed facial abscess/cellulitis with fever. The patient was evaluated by massive facial surgery, who recommended admission for IV antibiotics, and possible I&D procedure. Patient does not have any obvious dental examination findings to suggest Nithin's angina or retropharyngeal abscess. Impression & Plan Periapical abscess with facial involvement, Fever, Chronic dental infection, Abscess of face Discharge Plan Visit Data Chief Complaint: Facial Injury/Pain Stated Complaint: INFECTED TOOTH/RIGHT SIDE OF FACE SWELLED ED Provider: Jordy Kemp ED Midlevel Provider: Samy Farias Discharge Problem: Periapical abscess with facial involvement, Fever, Chronic dental infection, Abscess of face Patient Disposition: Admitted As Inpatient Discharge Instructions Interventions: ED Discharge Assessment Last Done: 05/03/21 12:30 Discharge Problem: Fever Qualifiers: Fever type: due to other condition Qualified Code(s): R50.81 - Fever presenting with conditions classified elsewhere
[2021-05-03 08:32] LABS: Basophils # (auto) 0.02 K/uL (0-0.2); Basophils % (auto) 0.2 %; Eosinophils # (auto) 0.13 K/uL (0-0.5); Hematocrit (blood only) 39.8 % (37-47); Hemoglobin 12.8 g/dL (12.0-16.0); Immature Granulocytes # (auto) 0.03 K/uL (0.00-0.02); Immature Granulocytes % (auto) 0.2 %; Lymphocytes # (auto) 2.35 K/uL (1.2-3.4); Lymphocytes % (auto) 17.6 %; Mean Corpuscular Hemoglobin 29.6 pg (25-34); Mean Corpuscular Hgb Conc 32.2 g/dL (32-36); Mean Corpuscular Volume 92.1 fL (80-100); Mean Platelet Volume 10.7 fL (7.4-10.4); Monocytes # (auto) 0.55 K/uL (0.11-0.59); Monocytes % (auto) 4.1 %; Neutrophils # (auto) 10.25 K/uL (1.4-6.5); Neutrophils % (auto) 76.9 %; Platelet Count 416 K/uL (130-400); RDW Coefficient of Variation 14.9 % (11.5-14.5); RDW Standard Deviation 50.8 fL (36.4-46.3); Red Blood Count 4.32 M/uL (4.2-5.4); White Blood Count 13.33 K/uL (4.8-10.8)
[2021-05-03 09:00] LABS: Albumin Globulin Ratio 0.8 (0.9-2); Albumin Level 3.8 gm/dl (3.4-5.0); BUN Creatinine Ratio 14.2 (10-20); Bilirubin,Total 0.3 mg/dl (0.2-1); Calcium 9.1 mg/dl (8.5-10.1); Est GFR (African American) 142.7 ml/min; Est GFR (Non-African American) 123.1 ml/min; Globulin 4.9 gm/dl (2.5-4.0); Potassium 3.8 mmol/L (3.5-5.1); Total Protein 8.7 gm/dl (6.4-8.2)
[2021-05-03] MEDS ORDERED: OPTIRAY 320 100ml IV ONE (09:10)
--- NOTE | 2021-05-03 09:40 | CT Scan Report ---
CT SCAN OF THE FACIAL BONES WITH IV CONTRAST CLINICAL HISTORY: Right maxillary dental abscess. COMPARISON STUDY: CT scan of the neck dated 05/08/2020. TECHNIQUE: High-resolution CT scan of the facial bones is performed following the IV administration of 95 cc of Optiray 320. Images are reviewed in the axial, sagittal, and coronal planes. IV contrast was administered without complication. A dose lowering technique was utilized adhering to the princi ples of ALA. CT DOSE: 150.09 mGy.cm FINDINGS: The skeletal structures are well mineralized. There is no evidence of facial bone fracture. The bony orbits are intact and the orbital contents are within normal limits. The zygomatic arches, nasal bones, and pterygoid plates are preserved. The maxilla and mandible are intact. There are no la yering blood products within the paranasal sinuses. Trace mucosal thickening is noted in the maxillar y antra. The remaining paranasal sinuses are clear. The mastoid air cells are well pneumatized. The v isualized calvarium and upper cervical spine are maintained. Partially imaged brain parenchyma is wit hin normal limits. Numerous dental caries are identified. There are periapical lucencies seen involvi ng both lateral maxillary incisors, a left maxillary molar, both lateral mandibular incisors, the lef t mandibular canine, and a right mandibular premolar. Several of these demonstrate cortical breakthro ugh. There is significant soft tissue inflammation in the premaxillary soft tissues. There is an absc ess overlying the anterior maxilla to the right of midline seen on axial image #122 which measures 1. 5 x 0.8 x 2.0 cm. The carotid arteries and jugular veins are patent. Prominent submandibular and subm ental lymph nodes are likely reactive. IMPRESSION: 1. There are numerous dental caries and periapical lucencies as above. Follow-up with dentistry is re commended. 2. There is evidence of facial cellulitis overlying the anterior maxilla with a 2 cm abscess as detai led above.. ACT 112: Negative or not required by law. Electronically signed by: Fco Funez M.D. 05/03/2021 9:39 AM
[2021-05-03] MEDS ORDERED: AMPICILLIN/SULBACTAM SOD 3,000 MG in 0.9 % SODIUM CHLORIDE 100 ML IV STA (10:29)
--- NOTE | 2021-05-03 10:37 | History & Physical Report ---
Date of Service May 03, 2021 Assessment & Plan (1) Periapical abscess with facial involvement: Large right maxillary facial abscess due to dental caries and periapical abscess. Dr Dickerson has seen, and will take her to the OR today for I/D and dental extractions. Unasyn IV initiated in ER - will continue IV q6h. Add lactinex. Right nare is irritated - could be MRSA carrier - will check MRSA swab. If + consider MRSA coverage but would be an unusual pathogen for this issue. NPO, IVF, IV pain meds, IV anti-emetics. Repeat labs in am. (2) Dental caries: Numerous - to have teeth extracted today. No fevers, no murmur on exam -- low suspicion for SBE, but will obtain 2 sets of blood cultures given her elevated wbc count, chills/fatigue, and the chronic nature of her oral cavity troubles. (3) Anxiety and depression: Cont lexapro. (4) Fatigue: TSH, a1c in am. Fatigue certainly worse recently in setting of dental abscess. (5) Obesity (BMI 30-39.9): BMI 38 Check TSH, a1c in am. (6) Tobacco dependence: Nicoderm patch 7mg/24 hours. Yolk Spray Drier to quit. updated at bedside. History of Present Illness Chief Complaint: facial pain Primary Care Provider: COLEMAN Barnes 36yo female presents with 1 month of ongoing facial pain and dental pain. She states that 4-5 weeks ago she had a small "sore" near the opening to the right nare. This then progressed to swelling and pain over the right maxillary area. She was seen here on 03/25/21 for this issue, given IV rocephin, and d/c home with THOMAS ALLEN. The swelling/pain of right maxillary region improved. She saw her dentist in the interim, dental extractions were recommended, and a referral was made. However, due to insurance issues, she was told that she could not get in to see an oral surgeon for 1 year. Since seeing her dentist the right facial pain and swelling returned, prompting another ER visit on 04/30/21. She was placed on clindamycin during that ER visit. Despite compliance w/ clindamycin the pain/swelling has persisted. Denies fevers, but has had chills, fatigue, and mild anorexia. Has dental pain throughout the oral cavity. Right nostril irritation continues. No prior h/o MRSA or recurrent abscesses. Seen by Dr Dickerson in ER - he will be taking her to the OR today for I/D and dental extractions. Allergies Allergy/AdvReac Type Severity Reaction Status Date / Time No Known Allergies Allergy Verified 05/03/21 08:13 Home Medications Medication Instructions Recorded Confirmed Type clindamycin HCl 300 mg PO TID 10 Days #30 cap 04/30/21 05/03/21 Rx hydrocodone 5 mg-acetaminophen 325 1 - 2 tab PO Q6H PRN #10 tab 05/01/21 05/03/21 Rx mg tablet escitalopram oxalate 20 mg PO QAM 05/03/21 05/03/21 History Past Med/Surg History Medical History (Updated 05/03/21 @ 13:53 by Virgil Mireles) Anxiety and depression Endometriosis Herpes zoster Hirsutism Insomnia Nephrolithiasis Surgical History (Updated 05/03/21 @ 11:31 by Virgil Mireles) History of carpal tunnel release RIGHT History of cholecystectomy History of hysterectomy [facility] and right salpingectomy, Dr. Walden Family History (Updated 05/03/21 @ 11:32 by Virgil Mireles) Mother Breast cancer Denies family history of Diabetes Social History (Updated 05/03/21 @ 11:32 by Virgil Mireles) Smoking Status: Current every day smoker Tobacco Type: Cigarettes Age Started Using Tobacco: 17; packs per day: 0.5; Years Smoked: 5; Hx Alcohol Use: No Hx Substance Use: No Preferred Language: German Communication Ability: Effective Visual Impairment: No Limitations Hearing Ability: Normal Beliefs That Will Affect Care: None marital status: Current Living Situation: Spouse Current Living Situation Comment: lives in [place] current occupational status: employed 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 How many Children do You have: 2 Feels Safe at Home: Yes Review of Systems Constitutional: + chills, + fatigue and + anorexia; no fever Eyes: no worsening vision Ear, Nose, Mouth, Throat: + dental pain, + dental caries and + dental abscess; no ear pain (popping right ear however), no sore throat and no dysphagia Respiratory: no cough and no dyspnea Cardiovascular: no chest pain and no edema Gastrointestinal: no abdominal pain, no nausea, no vomiting and no diarrhea/loose stools Genitourinary: no dysuria does not have menses -- s/p hysterectomy Musculoskeletal: no joint pain Integumentary: no rash Neurologic: no generalized weakness and no loss of sensation Psychiatric: + depression and + anxiety Endocrine: denies diabetes Hematologic / Lymphatic: no easy bleeding Physical Exam Constitutional: well developed, well nourished and + obese; no acute distress and no altered mental status Eyes: PERRL ENMT: Mouth: + poor dentition (numerous dental caries ) right tm mildly retracted but normal landmarks b/l; nose - right nare mildly irritated; right maxillary pain, swelling, scant erythema, along with significant tenderness Neck: trachea midline, no thyromegaly Respiratory: normal respiratory effort, lungs clear to auscultation Cardiovascular: Rate/Rhythm: regular rate and regular rhythm Heart Sounds: normal S1 and normal S2; no murmur Vessels: posterior tibial pulses present and dorsalis pedis pulses present; no JVD Extremities: no edema Gastrointestinal (Abdomen): normal bowel sounds, soft, nontender, no hepatosplenomegaly Musculoskeletal: no cyanosis or clubbing, extremities motor strength 5/5 Skin: scant irritation/redness near right nostril Neurologic: deep tendon reflexes 2+ bilaterally and moves all extremities Psychiatric: A+Ox3, euthymic affect Lymphatic: + cervical lymphadenopathy (multiple b/l neck) Results & Data Results & Data ([facility]) Vital Signs (Past 12 Hours) Vital Signs Temp Pulse Pulse Resp BP BP Pulse Ox 05/03/21 09:02 62 18 121/67 95 05/03/21 07:52 36.6 C 86 20 135/85 97 Laboratory Results Labs 05/03/21 05/03/21 05/03/21 08:24 08:24 10:41 WBC 13.33 H RBC 4.32 Hgb 12.8 Hct 39.8 MCV 92.1 MCH 29.6 MCHC 32.2 RDW Std Deviation 50.8 H RDW Coeff of Eddie 14.9 H Plt Count 416 H MPV 10.7 H Immature Gran % (Auto) 0.2 Neut % (Auto) 76.9 Lymph % (Auto) 17.6 Pendleton % (Auto) 4.1 Eos % (Auto) 1.0 Baso % (Auto) 0.2 Neut # (Auto) 10.25 H Lymph # (Auto) 2.35 [place] # (Auto) 0.55 Eos # (Auto) 0.13 Baso # (Auto) 0.02 Immature Gran # (Auto) 0.03 H Sodium 138 Potassium 3.8 Chloride 107 Carbon Dioxide 26 Anion Gap 5.0 BUN 8 Creatinine 0.54 L Est Cr Clr Drug Dosing 157.0 Est GFR ( Amer) 142.7 Est GFR (Non-Af Amer) 123.1 BUN/Creatinine Ratio 14.2 Glucose 94 Calcium 9.1 Total Bilirubin 0.3 AST 23 ALT 30 Alkaline Phosphatase 81 Total Protein 8.7 H Albumin 3.8 Globulin 4.9 H Albumin/Globulin Ratio 0.8 L Specimen Hemolysis COVID-19 Eval Order Covid19 at [facility] Diagnostic Findings Face CT 05/03/21 08:07 CT SCAN OF THE FACIAL BONES WITH IV CONTRAST CLINICAL HISTORY: Right maxillary dental abscess. COMPARISON STUDY: CT scan of the neck dated 05/08/2020. TECHNIQUE: High-resolution CT scan of the facial bones is performed following the IV administration of 95 cc of Optiray 320. Images are reviewed in the axial, sagittal, and coronal planes. IV contrast was administered without complication. A dose lowering technique was utilized adhering to the principles of ALARA. CT DOSE: 150.09 mGy.cm FINDINGS: The skeletal structures are well mineralized. There is no evidence of facial bone fracture. The bony orbits are intact and the orbital contents are within normal limits. The zygomatic arches, nasal bones, and pterygoid plates are preserved. The maxilla and mandible are intact. There are no layering blood products within the paranasal sinuses. Trace mucosal thickening is noted in the maxillary antra. The remaining paranasal sinuses are clear. The mastoid air cells are well pneumatized. The visualized calvarium and upper cervical spine are maintained. Partially imaged brain parenchyma is within normal limits. Numerous dental caries are identified. There are periapical lucencies seen involving both lateral maxillary incisors, a left maxillary molar, both lateral mandibular incisors, the left mandibular canine, and a right mandibular premolar. Several of these demonstrate cortical breakthrough. There is significa nt soft tissue inflammation in the premaxillary soft tissues. There is an abscess overlying the anterior maxilla to the right of midline seen on axial image #122 which measures 1.5 x 0.8 x 2.0 cm. The carotid arteries and jugular veins are patent. Prominent submandibular and submental lymph nodes are likely reactive. IMPRESSION: 1. There are numerous dental caries and periapical lucencies as above. Follow-up with dentistry is recommended. 2. There is evidence of facial cellulitis overlying the anterior maxilla with a 2 cm abscess as detailed above.. ACT 112: Negative or not required by law. Electronically signed by: Fco Funez M.D. 05/03/2021 9:39 AM Code Status & VTE Plan Code Status full PG Care Time/CCT Total # of Minutes Spent Total Time Spent with Patient: Total time spent is greater than 50% in coordination of care (as documented) at patient's floor/unit and/or counseling patient: Coding Level of Care Code 98688 OBS Care - Level 2 Diagnoses Periapical abscess with facial involvement K04.7 Dental caries K02.9 Anxiety and depression F41.9; F32.9 Fatigue R53.83 Fatigue type: other Obesity (BMI 30-39.9) E66.9 Tobacco dependence F17.200 (1) Fatigue Fatigue type: other Qualified Code(s): R53.83 - Other fatigue
[2021-05-03] MEDS: D5NSS + 20MEQ KCL 20 MEQ/1,000 ML BAG IV SCH ×2 (12:05→20:53)
[2021-05-03] MEDS ORDERED: ACETAMINOPHEN 325 MG TAB PO PRN (13:04)
[2021-05-03] MEDS ORDERED: MoRPHine SULFATE 2 MG/ML CARP IV PRN (13:04)
[2021-05-03] MEDS: ONDANSETRON INJ 2 MG/ML 2 ML VIAL IV PRN (13:19)
--- NOTE | 2021-05-03 14:48 | Oral/Maxillofacial Consult ---
Date of Consultation May 03, 2021 Assessment & Plan (1) Dental caries: (2) Periapical abscess with facial involvement: History of Present Illness Attending Physician: Virgil Mireles Oral Maxillofacial Surgery Exam Hospital consult facial infection failed out patient therapy. Present Complaint: I have pain/swelling/drainage from my infected upper front teeth. Symptoms have been ongoing for a while they would come and go. Swelling of upper lip and base of the nose, nasal floor swollen from extension from alveolar process Oral Exam: Finding- Gross swelling upper lip, tender swollen gingival tissue with deep pocket formation.upper Teeth are in an abnormal position and grossly decayed. I&D with extractions medically necessary given that outpatient oral antibiotics failed to control the infection. The removal is clinical indicated. Imaging: CT scan valerie Soft tissue: floor of the mouth, tongue, hard/soft palate, posterior pharyngeal area all with in normal limits, no pathology or abnormal findings noted. No lesions noted that require follow up or Bx. All swelling in the upper lip, base of he nose and muco-buccal fold anterior maxilla Oral Care: Overall oral care is poor Occlusion: Class I missing many teeth other teeth grossly decayed TMJ exam: No pop, clicking, pain, good ROM, No history of TMJ injury or dysfunction Periodontal exam: Healthy gingival tissue without evidence of periodontal pathology Head/Neck exam: Neck is supple, FROM, Able to extend and flex neck w/o difficulty, no masses, no abnormalities, no airway issues, no evidence of sleep apnea. Treatment Plan: admission to hospital secondary to acute facial nasal infection failed out patient therapy Set up with general anesthesia in hospital due to complexity of the procedure I&D, extraction all upper teeth and a few lower teeth I reviewed the treatment plan and consent with the patient . Understanding was expressed. Time was given for questions regarding the surgery, risks and post op care. Discussed alternative to treatment--really none The teeth are grossly infected and removal is indicated and medically necessary. Risks discussed: Pain,swelling,infection, dry socket, delayed healing, nerve injury to face,lips,tongue,chin area which could be permanent (rare). TMJ, jaw stiffness, change in bite (rare), ear pain (referred). Sinus problems like fistula or infection. Need to leave a small root fragment in place to avoid injury to nerve or sinus. Relationship of teeth to nerve/sinus and risk of jaw fracture. need for dentures, alveoplasty Home care reviewed: tooth brushing, rinsing, follow up care with Dr Dickerson. diet=[id number] dental. Discussed activity level, driving/work while on Rx pain Meds. Surgery to be set up for today as emergency I will coordinated with the OR staff and set up today RADHA. She is NPO and COVID Neg. Allergies Allergy/AdvReac Type Severity Reaction Status Date / Time No Known Allergies Allergy Verified 05/03/21 08:13 Home Medications Medication Instructions Recorded Confirmed Type clindamycin HCl 300 mg PO TID 10 Days #30 cap 04/30/21 05/03/21 Rx hydrocodone 5 mg-acetaminophen 325 1 - 2 tab PO Q6H PRN #10 tab 05/01/21 05/03/21 Rx mg tablet escitalopram oxalate 20 mg PO QAM 05/03/21 05/03/21 History Patient History Medical History (Updated 05/03/21 @ 13:53 by Virgil Mireles) Anxiety and depression Endometriosis Herpes zoster Hirsutism Insomnia Nephrolithiasis Surgical History (Updated 05/03/21 @ 11:31 by Virgil Mireles) History of carpal tunnel release RIGHT History of cholecystectomy History of hysterectomy TLH and right salpingectomy, Dr. Walden Family History (Updated 05/03/21 @ 11:32 by Virgil Mireles) Mother Breast cancer Denies family history of Diabetes Social History (Updated 05/03/21 @ 11:32 by Virgil Mireles) Smoking Status: Current every day smoker Tobacco Type: Cigarettes Age Started Using Tobacco: 17; packs per day: 0.5; Years Smoked: 5; Second Hand Exposure: Yes; Do You Dip or Chew Tobacco: No; Tobacco Cessation Education Requested by Patient: No Hx Alcohol Use: No Hx Substance Use: No Preferred Language: [place] Communication Ability: Effective Visual Impairment: No Limitations Hearing Ability: Normal 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) Vital Signs (Past 12 Hours) Vital Signs Temp Pulse Pulse Resp BP BP Pulse Ox 05/03/21 11:26 63 18 132/84 95 05/03/21 10:41 95 H 18 127/92 95 05/03/21 09:02 62 18 121/67 95 05/03/21 07:52 36.6 C 86 20 135/85 97 PG Care Time/CCT Total # of Minutes Spent Total Time Spent with Patient: Total time spent is greater than 50% in coord ination of care (as documented) at patient's floor/unit and/or counseling patient: Coding Level of Care Code 45877 Inpt Consult Level 3 Diagnoses Dental caries K02.9 Periapical abscess with facial involvement K04.7
[2021-05-03] MEDS: NICOTINE 7 MG/24 HR TDSY TD SCH (15:34)
[2021-05-03] MEDS: HYDROCODONE/ACETAMOPHEN 5/325MG TAB PO PRN (15:34)
[2021-05-03] MEDS ORDERED: CHECK SCOPOLAMINE PATCH PLACEMENT SCH (16:00)
[2021-05-03] MEDS ORDERED: ePHEDrine sulfate 50 MG/ML AMP IV PRN (16:13)
[2021-05-03] MEDS ORDERED: HYDROmorphone INJ 1 MG/ML SYRINGE IV PRN (16:13)
[2021-05-03] MEDS ORDERED: ATROPINE SULFATE 0.1 MG/ML 10ML SYR IV PRN (16:13)
[2021-05-03] MEDS ORDERED: PHENYLEPHRINE 100MCG/ML 5ML SYR IV PRN (16:14)
[2021-05-03] MEDS ORDERED: ONDANSETRON INJ 2 MG/ML 2 ML VIAL IV PRN (16:14)
[2021-05-03] MEDS ORDERED: LABETALOL HCL IV 5 MG/ML 20ML IV PRN (16:14)
[2021-05-03] MEDS: HYDROmorphone INJ 0.5 MG/0.5 ML SYR IV PRN (16:17)
[2021-05-03] MEDS ORDERED: SCOPOLAMINE 1 MG TDSY TD ONE ×2 (17:05→17:30)
--- NOTE | 2021-05-03 17:08 | Anesthesiology Consultation ---
Date of Service May 03, 2021 Assessment & Plan (1) Encounter for pre-operative examination: Chart Review Chart Review: Acceptable Risk for Surgery and Patient NOT seen in Pre Admission Testing Consults Requested none History Surgery Operation Date: 05/03/21 10:40 Proposed Procedures p Incision and Drainage Facial Abscess, Extraction Teeth - Dewey Dickerson, DMD Height/Weight Height: 5 ft 2 in Weight: 94.2 kg Allergies Allergy/AdvReac Type Severity Reaction Status Date / Time No Known Allergies Allergy Verified 05/03/21 08:13 Medications Home Medications Medication Instructions Recorded Confirmed Last Taken clindamycin HCl 300 mg PO TID 10 Days #30 cap 04/30/21 05/03/21 05/03/21 07:00 1 capsule hydrocodone 5 mg-acetaminophen 325 1 - 2 tab PO Q6H PRN #10 tab 05/01/21 05/03/21 05/03/21 07:00 mg tablet 1 tablet escitalopram oxalate 20 mg PO QAM 05/03/21 05/03/21 05/03/21 07:00 Active Medications Generic Name Dose Route Start Last Admin Trade Name Freq PRN Reason Stop Dose Admin Hydrocodone Bitart/Acetaminophen 1 tab 05/03/21 13:04 05/03/21 15:34 Hydrocodone/Acetamophen 5/325mg Tab PO 05/17/21 13:03 1 tab Q4H PRN Administration pain Hydromorphone HCl 0.25 mg 05/03/21 16:04 05/03/21 16:17 Hydromorphone Inj 0.5 Mg/0.5 Ml Syr IV 05/17/21 16:03 0.25 mg Q3H PRN Administration Pain Potassium Chloride/Dextrose/Sod Cl 20 meq in 1,000 mls @ 100 mls/hr 05/03/21 11:30 05/03/21 12:05 D5nss + 20meq Kcl IV 05/04/21 07:29 100 mls/hr .Q10H VAHE Administration Nicotine 7 mg 05/03/21 13:04 05/03/21 15:34 Nicotine 7 Mg/24 Hr Tdsy TD 06/02/21 13:03 7 mg QAM VAHE Administration Ondansetron HCl 4 mg 05/03/21 13:04 05/03/21 13:19 Ondansetron Inj 2 Mg/Ml 2 Ml Vial IV 06/02/21 13:03 4 mg Q6H PRN Administration Nausea NPO Date Last Intake of Fluids: 05/02/21 Time Last Intake of Fluids: 18:00 Date Last Intake of Solids: 05/02/21 Time Last Intake of Solids: 18:00 Past Medical History Medical History Anxiety and depression Endometriosis Herpes zoster Hirsutism Insomnia Nephrolithiasis Obesity Smoker Past Family History Family History Mother Breast cancer Denies family history of Diabetes Past Surgical History Surgical History History of carpal tunnel release RIGHT History of cholecystectomy History of hysterectomy [facility] and right salpingectomy, Dr. Walden Social History Smoking Status: Current every day smoker tobacco type: cigarettes Do You Dip or Chew Tobacco: No Hx Alcohol Use: No alcohol intake frequency: a few times a month Hx Substance Use: No substance use type: does not use Physical Exam Vital Signs Last Vital Signs Temp 38.1 C H 05/03/21 16:55 Pulse 83 05/03/21 16:55 Resp 16 05/03/21 16:55 BP 135/77 05/03/21 16:55 Pulse Ox 91 05/03/21 16:55 Testing Laboratory Results 05/03/21 08:24 05/03/21 08:24
[2021-05-03] MEDS ORDERED: ONDANSETRON INJ 2 MG/ML 2 ML VIAL ONE (17:49)
[2021-05-03] MEDS ORDERED: LIDOCAINE 2% 2 ML VIAL/AMP(20MG/ML) INFIL ONE (17:49)
[2021-05-03] MEDS ORDERED: SUCCINYLCHOLINE CHLORIDE 20 MG/ML 10 ML VIAL IV ONE (17:49)
[2021-05-03] MEDS ORDERED: MIDAZOLAM HCL 1 MG/ML 2ML VIAL ONE ×2 (17:49→18:29)
[2021-05-03] MEDS ORDERED: DEXAMETHASONE SOD INJ 4 MG/ML VIAL ONE (17:49)
--- NOTE | 2021-05-03 17:58 | History & Physical Bridge Note ---
Date of Service May 03, 2021 History & Physical Bridge Note I have examined the patient, reviewed the History & Physical and in the interval since the performance of the History & Physical I have noted the following changes of clinical significance: no changes noted COVID neg I will plan I&D of the nasal/facial area Extraction of # 3,7,89,10,11,13,19,20,21,22,28.
[2021-05-03] MEDS ORDERED: BUPIVACAINE/EPINEPHRINE 0.5% 1:200,000 1.8 ML CARP ONE (18:28)
[2021-05-03] MEDS ORDERED: fentaNYL citrate 100 MCG/2 ML VIAL ONE ×2 (18:29→18:58)
[2021-05-03] MEDS ORDERED: LIDOCAINE 2%/EPINEPHRINE 1:100,000 1.8 ML CARTRIDGE ONE (18:29)
[2021-05-03] MEDS ORDERED: CHLORHEXIDINE GLUCONATE 0.12% 480 ML ONE (18:29)
[2021-05-03] MEDS ORDERED: GLYCOPYRROLATE 0.2 MG/ML VIAL ONE (18:57)
[2021-05-03] MEDS ORDERED: NEOSTIGMINE METHYLSULFATE 1 MG/ML 10ML VIAL ONE (19:16)
[2021-05-03] MEDS ORDERED: PROPOFOL IV EMULSION 10 MG/ML 20 ML VIAL IV ONE (19:17)
[2021-05-03] MEDS ORDERED: ESMOLOL HCL INJ 10 MG/ML 10ML VIAL IV ONE (19:23)
[2021-05-03] MEDS ORDERED: KETOROLAC 30 MG/ML VIAL ONE (19:41)
[2021-05-03] MEDS: fentaNYL citrate 100 MCG/2 ML VIAL IV PRN ×4 (20:05→20:20)
--- NOTE | 2021-05-03 20:06 | Post Operative Brief Note ---
PG Immediate Post Op with CF Date of Surgery May 03, 2021 Pre & Post Diagnosis Operation Date: 05/03/21 10:40 Pre-Op Diagnosis: Facial Cellulitis/Abscess Post-Op Diagnosis: Facial Cellulitis/Abscess I identified the patient and participated in the time-out.: Yes Procedure Operation Date: 05/03/21 10:40 Actual Procedures p Incision and Drainage Facial Abscess, Extraction of Teeth # 3,7,8,9,10,11,13,19,20,21,22,28(Bilateral) - Dewey Dickerson DMD Surgeon Dewey Dickerson, KHARI Soccer Referee none Estimated Blood Loss 10 Findings Consistent with Post-Op Diagnosis Specimens Specimen Description: Culture 1. Facial Nasal Abscess
--- NOTE | 2021-05-03 20:40 | Anesthesiology Progress Note ---
Date of Service May 03, 2021 Anesthesia Post Procedure Vital Signs Vital Signs: Temp Pulse Pulse Pulse Pulse Resp BP 05/03/21 20:35 36.8 C 72 13 05/03/21 20:25 74 18 05/03/21 20:15 70 14 05/03/21 20:05 71 14 05/03/21 19:57 36.3 C L 85 16 05/03/21 16:55 38.1 C H 83 16 05/03/21 15:37 36.7 C 75 16 05/03/21 13:06 37 C 67 18 05/03/21 11:26 63 18 05/03/21 10:41 95 H 18 05/03/21 09:02 62 18 05/03/21 07:52 36.6 C 86 20 135/85 BP BP Pulse Ox 05/03/21 20:35 123/73 93 05/03/21 20:25 117/60 92 05/03/21 20:15 144/74 H 93 05/03/21 20:05 138/74 94 05/03/21 19:57 154/74 H 91 05/03/21 16:55 135/77 91 05/03/21 15:37 121/66 92 05/03/21 13:06 134/63 96 05/03/21 11:26 132/84 95 05/03/21 10:41 127/92 95 05/03/21 09:02 121/67 95 05/03/21 07:52 97 Pain Intensity Teeth: Pain Intensity: 2 Mouth: Pain Intensity: 2 Right Face: Pain Intensity: 2 Transfer of Care Handoff Completed per policy Notes Mental Status: alert / awake / arousable Patient Amnestic to Procedure: Yes Nausea / Vomiting: adequately controlled Pain: adequately controlled Airway Patency, RR, SpO2: stable & adequate BP & HR: stable & adequate Hydration State: stable & adequate Anesthetic Complications: no major complications apparent and Pt Satisfied with anesthetic care
[2021-05-03] MEDS: AMPICILLIN/SULBACTAM SOD 3,000 MG in 0.9 % SODIUM CHLORIDE 100 ML IV SCH (21:25)
[2021-05-04] MEDS: HYDROmorphone INJ 0.5 MG/0.5 ML SYR IV PRN ×7 (00:01→21:12)
[2021-05-04] MEDS: AMPICILLIN/SULBACTAM SOD 3,000 MG in 0.9 % SODIUM CHLORIDE 100 ML IV SCH ×4 (03:10→20:32)
[2021-05-04 06:07] LABS: Hematocrit (blood only) 36.7 % (37-47); Hemoglobin 11.9 g/dL (12.0-16.0); Mean Corpuscular Hgb Conc 32.4 g/dL (32-36); Mean Corpuscular Volume 89.3 fL (80-100); Mean Platelet Volume 10.6 fL (7.4-10.4); Platelet Count 375 K/uL (130-400); RDW Coefficient of Variation 14.8 % (11.5-14.5); RDW Standard Deviation 48.2 fL (36.4-46.3); Red Blood Count 4.11 M/uL (4.2-5.4); White Blood Count 11.07 K/uL (4.8-10.8)
[2021-05-04 06:39] LABS: Estimated Average Glucose 120 mg/dl; Hemoglobin A1C 5.8 % (4.5-5.6)
[2021-05-04 06:42] LABS: BUN Creatinine Ratio 12.6 (10-20); Calcium 8.4 mg/dl (8.5-10.1); Creatinine Clr Calc Pharmacy 166.2 ml/min; Est GFR (African American) 145.4 ml/min; Est GFR (Non-African American) 125.5 ml/min; Potassium 3.9 mmol/L (3.5-5.1)
[2021-05-04 06:52] LABS: Thyroid Stimulating Hormone 0.658 uIu/ml (0.300-4.500)
[2021-05-04] MEDS: ONDANSETRON INJ 2 MG/ML 2 ML VIAL IV PRN (07:49)
--- NOTE | 2021-05-04 07:56 | Hospitalist Progress Note ---
Date of Service May 04, 2021 Assessment & Plan (1) Periapical abscess with facial involvement: Large right maxillary facial abscess due to dental caries and periapical abscess. Seen in ER 5/10 (rocephin, d/c Augmentin), improved. Had seen dentist and recs for extraction but d/t insurance not able to get into for 1 year. Placed on Clindamycin however persisted CT SCAN OF THE FACIAL BONES IMPRESSION: * 1. There are numerous dental caries and periapical lucencies as above. Follow- up with dentistry is recommended. * 2. There is evidence of facial cellulitis overlying the anterior maxilla with a 2 cm abscess as detailed above.. Dr Dickerson Consulted POD#1 s/p Incision and Drainage Facial Abscess, Extraction of Teeth # 3,7,8,9,10,11,13,19,20,21,22,28(Bilateral) - Dewey Dickerson, DMD. EBL 10cc Clear liquid diet for breakfast Unasyn -- continue for another 24 hours then Augmentin at discharge. Cxs pending Continue massage, heat, wound care WBC 13.3k --> 11k h/h 12.8--> 11.9 -- acute blood loss anemia from surgery and dilutional from IVF D.C IVF MRSA nasal swab NEGATIVE Lactinex Oxycodone, Dilaudid prn pain -- utilizing IV for today more but suspect able to transition to more PO this evening through tomorrow Changed to full admission If pain controlled, possible d/c tomorrow and will have drain removal in office on May 07. Patient already has information regarding appointment (2) Dental caries: Numerous - s/p extraction as above No fevers, no murmur on exam -- low suspicion for SBE, but will obtain 2 sets of blood cultures given her elevated wbc count, chills/fatigue, and the chronic nature of her oral cavity troubles --> monitor See above (3) Anxiety and depression: Cont lexapro. (4) Fatigue: Fatigue certainly worse recently in setting of dental abscess. Improving TSH wnl 0.658 A1c 5.8 -- will need counseled on pre-DM (5) Obesity (BMI 30-39.9): BMI 38 TSH/A1c as above Weight loss/diet/exercise (6) Tobacco dependence: Nicoderm patch 7mg/24 hours. 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 Encouraged cessation, gisela to avoid dry socket (7) Pre-diabetes: A1c 5.8 -- education and f/u PCP Dispo: continued inpatient stay possible d/c in AM Admission and Anticipated Discharge Date Admission Date: May 03, 2021 Supervising Physician Co-Signing Physician Notes PA Supervision Note: I did not personally see or examine the patient today, but I verified all rivers points of KEVEN Ferreira's assessment and plan with the following exceptions/additions: None Subjective Patient evaluated this afternoon,. Pain controlled. Had increased this morning but she is thankful for RN to keep on top of this. Tolerating liquid diet without difficulty swallowing. Did cough x 2 with some blood earlier but nothing since. Drain to remain in place until Thursday and removal at office with Dr. Dickerson. No fever, chills, chest pain, nausea, vomiting, abd discomfort. Passing gas but no BM. Would really like to shower if possible -- will put in order. She is a smoker and discussed avoidance of cigarettes as well as straws to avoid dry sockets. Continuing on IV abx for another 24 hour and consider orals/dc tomorrow if pain controlled. Review of Systems Review of Systems: All systems reviewed & are unremarkable except as noted in HPI & below Physical Exam Constitutional: well developed, well nourished and + obese; no acute distress and no altered mental status Eyes: PERRL ENMT: Mouth: + poor dentition (numerous dental caries -- s/p extraction of multiple with drain to R upper ) mild swelling, minimally tender to palpation around maxilla (R), no drainage noted Neck: trachea midline, no thyromegaly Respiratory: normal respiratory effort, lungs clear to auscultation on room air Cardiovascular: Rate/Rhythm: regular rate and regular rhythm Heart Sounds: normal S1 and normal S2; no murmur Vessels: posterior tibial pulses present and dorsalis pedis pulses present; no JVD Extremities: no edema Gastrointestinal (Abdomen): normal bowel sounds, soft, nontender, no hepatosplenomegaly Musculoskeletal: no cyanosis or clubbing, extremities motor strength 5/5 Skin: no rashes, warm and dry Neurologic: deep tendon reflexes 2+ bilaterally and moves all extremities Psychiatric: A+Ox3, euthymic affect Lymphatic: + cervical lymphadenopathy (multiple b/l neck) Results & Data Results & Data ([facility]) Vital Signs (Past 12 Hours) Vital Signs Temp Pulse Pulse Resp BP Pulse Ox 05/04/21 02:44 36.6 C 98 H 16 128/84 94 05/03/21 23:52 36.7 C 88 16 114/72 92 05/03/21 22:46 36.9 C 83 16 114/67 93 05/03/21 21:55 88 17 111/66 92 05/03/21 21:23 36.7 C 86 16 104/70 92 05/03/21 20:47 37 C 72 18 113/73 93 05/03/21 20:35 36.8 C 72 13 123/73 93 05/03/21 20:25 74 18 117/60 92 05/03/21 20:15 70 14 144/74 H 93 05/03/21 20:05 71 14 138/74 94 05/03/21 19:57 36.3 C L 85 16 154/74 H 91 Laboratory Results 05/04/21 05/04/21 05/04/21 Range/Units 05:32 05:32 05:32 WBC 11.07 H (4.8-10.8) K/uL RBC 4.11 L (4.2-5.4) M/uL Hgb 11.9 L (12.0-16.0) g/dL Hct 36.7 L (37-47) % MCV 89.3 (80-100) fL MCH 29.0 (25-34) pg MCHC 32.4 (32-36) g/dL RDW Std Deviation 48.2 H (36.4-46.3) fL RDW Coeff of Eddie 14.8 H (11.5-14.5) % Plt Count 375 (130-400) K/uL MPV 10.6 H (7.4-10.4) fL Immature Gran % (Auto) % Neut % (Auto) % Lymph % (Auto) % [place] % (Auto) % Eos % (Auto) % Baso % (Auto) % Neut # (Auto) (1.4-6.5) K/uL Lymph # (Auto) (1.2-3.4) K/uL [place] # (Auto) (0.11-0.59) K/uL Eos # (Auto) (0-0.5) K/uL Baso # (Auto) (0-0.2) K/uL Immature Gran # (Auto) (0.00-0.02) K/uL Sodium 139 (136-145) mmol/L Potassium 3.9 (3.5-5.1) mmol/L Chloride 106 (98-107) mmol/L Carbon Dioxide 25 (21-32) mmol/L Anion Gap 8.0 (3-11) BUN 6 L (7-18) mg/dl Creatinine 0.51 L (0.6-1.2) mg/dl Est Cr Clr Drug Dosing 166.2 ml/min Est GFR ( Amer) 145.4 ml/min Est GFR (Non-Af Amer) 125.5 ml/min BUN/Creatinine Ratio 12.6 (10-20) Glucose 135 H (70-99) mg/dl Estimat Average Glucose 120 mg/dl Hemoglobin A1c 5.8 H (4.5-5.6) % Calcium 8.4 L (8.5-10.1) mg/dl Total Bilirubin (0.2-1) mg/dl AST (15-37) U/L ALT (12-78) U/L Alkaline Phosphatase (45-117) U/L Total Protein (6.4-8.2) gm/dl Albumin (3.4-5.0) gm/dl Globulin (2.5-4.0) gm/dl Albumin/Globulin Ratio (0.9-2) TSH 0.658 (0.300-4.500) uIu/ml Specimen Hemolysis Nasal Screen MRSA (PCR) (Negative) COVID-19 Eval Order SARS-CoV-2 (PCR) (Negative) 05/03/21 05/03/21 05/03/21 Range/Units 11:27 10:41 10:41 WBC (4.8-10.8) K/uL RBC (4.2-5.4) M/uL Hgb (12.0-16.0) g/dL Hct (37-47) % MCV (80-100) fL MCH (25-34) pg MCHC (32-36) g/dL RDW Std Deviation (36.4-46.3) fL RDW Coeff of Eddie (11.5-14.5) % Plt Count (130-400) K/uL MPV (7.4-10.4) fL Immature Gran % (Auto) % Neut % (Auto) % Lymph % (Auto) % [place] % (Auto) % Eos % (Auto) % Baso % (Auto) % Neut # (Auto) (1.4-6.5) K/uL Lymph # (Auto) (1.2-3.4) K/uL [place] # (Auto) (0.11-0.59) K/uL Eos # (Auto) (0-0.5) K/uL Baso # (Auto) (0-0.2) K/uL Immature Gran # (Auto) (0.00-0.02) K/uL Sodium (136-145) mmol/L Potassium (3.5-5.1) mmol/L Chloride (98-107) mmol/L Carbon Dioxide (21-32) mmol/L Anion Gap (3-11) BUN (7-18) mg/dl Creatinine (0.6-1.2) mg/dl Est Cr Clr Drug Dosing ml/min Est GFR ( Amer) ml/min Est GFR (Non-Af Amer) ml/min BUN/Creatinine Ratio (10-20) Glucose (70-99) mg/dl Estimat Average Glucose mg/dl Hemoglobin A1c (4.5-5.6) % Calcium (8.5-10.1) mg/dl Total Bilirubin (0.2-1) mg/dl AST (15-37) U/L ALT (12-78) U/L Alkaline Phosphatase (45-117) U/L Total Protein (6.4-8.2) gm/dl Albumin (3.4-5.0) gm/dl Globulin (2.5-4.0) gm/dl Albumin/Globulin Ratio (0.9-2) TSH (0.300-4.500) uIu/ml Specimen Hemolysis Nasal Screen MRSA (PCR) Negative (Negative) COVID-19 Eval Order Covid19 at [facility] SARS-CoV-2 (PCR) NEGATIVE (Negative) 05/03/21 05/03/21 Range/Units 08:24 08:24 WBC 13.33 H (4.8-10.8) K/uL RBC 4.32 (4.2-5.4) M/uL Hgb 12.8 (12.0-16.0) g/dL Hct 39.8 (37-47) % MCV 92.1 (80-100) fL MCH 29.6 (25-34) pg MCHC 32.2 (32-36) g/dL RDW Std Deviation 50.8 H (36.4-46.3) fL RDW Coeff of Eddie 14.9 H (11.5-14.5) % Plt Count 416 H (130-400) K/uL MPV 10.7 H (7.4-10.4) fL Immature Gran % (Auto) 0.2 % Neut % (Auto) 76.9 % Lymph % (Auto) 17.6 % [place] % (Auto) 4.1 % Eos % (Auto) 1.0 % Baso % (Auto) 0.2 % Neut # (Auto) 10.25 H (1.4-6.5) K/uL Lymph # (Auto) 2.35 (1.2-3.4) K/uL [place] # (Auto) 0.55 (0.11-0.59) K/uL Eos # (Auto) 0.13 (0-0.5) K/uL Baso # (Auto) 0.02 (0-0.2) K/uL Immature Gran # (Auto) 0.03 H (0.00-0.02) K/uL Sodium 138 (136-145) mmol/L Potassium 3.8 (3.5-5.1) mmol/L Chloride 107 (98-107) mmol/L Carbon Dioxide 26 (21-32) mmol/L Anion Gap 5.0 (3-11) BUN 8 (7-18) mg/dl Creatinine 0.54 L (0.6-1.2) mg/dl Est Cr Clr Drug Dosing 157.0 ml/min Est GFR ( Amer) 142.7 ml/min Est GFR (Non-Af Amer) 123.1 ml/min BUN/Creatinine Ratio 14.2 (10-20) Glucose 94 (70-99) mg/dl Estimat Average Glucose mg/dl Hemoglobin A1c (4.5-5.6) % Calcium 9.1 (8.5-10.1) mg/dl Total Bilirubin 0.3 (0.2-1) mg/dl AST 23 (15-37) U/L ALT 30 (12-78) U/L Alkaline Phosphatase 81 (45-117) U/L Total Protein 8.7 H (6.4-8.2) gm/dl Albumin 3.8 (3.4-5.0) gm/dl Globulin 4.9 H (2.5-4.0) gm/dl Albumin/Globulin Ratio 0.8 L (0.9-2) TSH (0.300-4.500) uIu/ml Specimen Hemolysis Nasal Screen MRSA (PCR) (Negative) COVID-19 Eval Order SARS-CoV-2 (PCR) (Negative) PG Care Time/CCT Total # of Minutes Spent Total Time Spent with Patient: Total time spent is greater than 50% in coordination of care (as documented) at patient's floor/unit and/or counseling patient: Coding Level of Care Code 55526 Subseq Hosp Care Lvl 2 Diagnoses Periapical abscess with facial involvement K04.7 Dental caries K02.9 Anxiety and depression F41.9; F32.9 Fatigue R53.83 Fatigue type: other Obesity (BMI 30-39.9) E66.9 Tobacco dependence F17.200 Pre-diabetes R73.03 (1) Fatigue Fatigue type: other Qualified Code(s): R53.83 - Other fatigue
[2021-05-04] MEDS: ADVANCED PROBIOTIC 1250 MG CAPSULE PO SCH (08:28)
[2021-05-04] MEDS: ESCITALOPRAM OXALATE 20 MG TAB PO SCH (08:28)
[2021-05-04] MEDS: NICOTINE 7 MG/24 HR TDSY TD SCH (08:29)
--- NOTE | 2021-05-04 08:47 | Procedure Note ---
Procedure Note Date of Service May 04, 2021 Post Op infection evaluation Post op day 1 The infected area is now healing very well. Swelling is getting much less and is softer No drainage is noted. Drain will be removed on follow up May 07 in my office Cultures pending Infection has responded very well to the antibiotics and the I and D. I requested that the patient continue with massage, heat and wound care. Continue IV antibiotics 24 hours then OK for discharge I will Rx==Augmentin 875 and pain Meds At this time the area is well healed and responded well to treatment. RTC May 07 for Post op patient aware of the appointment Coding
[2021-05-04] MEDS: KETOROLAC 30 MG/ML VIAL IV PRN ×2 (10:01→17:02)
[2021-05-05] MEDS: AMPICILLIN/SULBACTAM SOD 3,000 MG in 0.9 % SODIUM CHLORIDE 100 ML IV SCH ×3 (02:29→16:51)
[2021-05-05] MEDS: KETOROLAC 30 MG/ML VIAL IV PRN ×3 (02:38→23:41)
[2021-05-05 06:37] LABS: Mean Corpuscular Hemoglobin 29.2 pg (25-34); Mean Corpuscular Hgb Conc 31.3 g/dL (32-36); Mean Corpuscular Volume 93.3 fL (80-100); Mean Platelet Volume 9.9 fL (7.4-10.4); Platelet Count 330 K/uL (130-400); RDW Coefficient of Variation 15.5 % (11.5-14.5); RDW Standard Deviation 52.8 fL (36.4-46.3); Red Blood Count 3.43 M/uL (4.2-5.4); White Blood Count 10.28 K/uL (4.8-10.8)
[2021-05-05 07:10] LABS: BUN Creatinine Ratio 30.7 (10-20); Calcium 8.3 mg/dl (8.5-10.1); Creatinine Clr Calc Pharmacy 166.2 ml/min; Est GFR (African American) 145.4 ml/min; Est GFR (Non-African American) 125.5 ml/min; Potassium 3.7 mmol/L (3.5-5.1)
--- NOTE | 2021-05-05 07:53 | Hospitalist Progress Note ---
Date of Service May 05, 2021 Assessment & Plan (1) Periapical abscess with facial involvement: Large right maxillary facial abscess due to dental caries and periapical abscess. Seen in ER 5/10 (rocephin, d/c Augmentin), improved. Had seen dentist and recs for extraction but d/t insurance not able to get into for 1 year. Placed on Clindamycin however persisted CT SCAN OF THE FACIAL BONES IMPRESSION: * 1. There are numerous dental caries and periapical lucencies as above. Follow- up with dentistry is recommended. * 2. There is evidence of facial cellulitis overlying the anterior maxilla with a 2 cm abscess as detailed above.. Dr Dickerson Consulted POD#1 s/p Incision and Drainage Facial Abscess, Extraction of Teeth # 3,7,8,9,10,11,13,19,20,21,22,28(Bilateral) - Dewey Dickerson, DMD. EBL 10cc Clear liquid diet for breakfast Unasyn -- continue for another 24 hours then Augmentin at discharge. Cxs pending Continue massage, heat, wound care WBC 13.3k --> 11k h/h 12.8--> 11.9 -- acute blood loss anemia from surgery and dilutional from IVF D.C IVF MRSA nasal swab NEGATIVE Lactinex Oxycodone, Dilaudid prn pain -- utilizing IV for today more but suspect able to transition to more PO this evening through tomorrow Changed to full admission If pain controlled, possible d/c tomorrow and will have drain removal in office on May 07. Patient already has information regarding appointment (2) Dental caries: Numerous - s/p extraction as above No fevers, no murmur on exam -- low suspicion for SBE, but will obtain 2 sets of blood cultures given her elevated wbc count, chills/fatigue, and the chronic nature of her oral cavity troubles --> monitor See above (3) Anxiety and depression: Cont lexapro. (4) Fatigue: Fatigue certainly worse recently in setting of dental abscess. Improving TSH wnl 0.658 A1c 5.8 -- will need counseled on pre-DM (5) Obesity (BMI 30-39.9): BMI 38 TSH/A1c as above Weight loss/diet/exercise (6) Tobacco dependence: Nicoderm patch 7mg/24 hours. 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 Encouraged cessation, gisela to avoid dry socket (7) Pre-diabetes: A1c 5.8 -- education and f/u PCP Dispo: continued inpatient stay possible d/c in AM Admission and Anticipated Discharge Date Admission Date: May 04, 2021 Results & Data Results & Data ([facility]) Vital Signs (Past 12 Hours) Vital Signs Temp Pulse Resp BP Pulse Ox 05/04/21 22:47 36.6 C 65 16 100/64 92 Laboratory Results 05/05/21 05/05/21 Range/Units 06:23 06:23 WBC 10.28 (4.8-10.8) K/uL RBC 3.43 L (4.2-5.4) M/uL Hgb 10.0 L (12.0-16.0) g/dL Hct 32.0 L (37-47) % MCV 93.3 (80-100) fL MCH 29.2 (25-34) pg MCHC 31.3 L (32-36) g/dL RDW Std Deviation 52.8 H (36.4-46.3) fL RDW Coeff of Eddie 15.5 H (11.5-14.5) % Plt Count 330 (130-400) K/uL MPV 9.9 (7.4-10.4) fL Sodium 140 (136-145) mmol/L Potassium 3.7 (3.5-5.1) mmol/L Chloride 107 (98-107) mmol/L Carbon Dioxide 28 (21-32) mmol/L Anion Gap 5.0 (3-11) BUN 16 D (7-18) mg/dl Creatinine 0.51 L (0.6-1.2) mg/dl Est Cr Clr Drug Dosing 166.2 ml/min Est GFR ( Amer) 145.4 ml/min Est GFR (Non-Af Amer) 125.5 ml/min BUN/Creatinine Ratio 30.7 H (10-20) Glucose 91 (70-99) mg/dl Calcium 8.3 L (8.5-10.1) mg/dl PG Care Time/CCT Total # of Minutes Spent Total Time Spent with Patient: Total time spent is greater than 50% in coordination of care (as documented) at patient's floor/unit and/or counseling patient: Coding Diagnoses Periapical abscess with facial involvement K04.7 Dental caries K02.9 Anxiety and depression F41.9; F32.9 Fatigue R53.83 Fatigue type: other Obesity (BMI 30-39.9) E66.9 Tobacco dependence F17.200 Pre-diabetes R73.03 (1) Fatigue Fatigue type: other Qualified Code(s): R53.83 - Other fatigue
[2021-05-05] MEDS: NICOTINE 7 MG/24 HR TDSY TD SCH (08:29)
[2021-05-05] MEDS: ADVANCED PROBIOTIC 1250 MG CAPSULE PO SCH (08:30)
[2021-05-05] MEDS: ESCITALOPRAM OXALATE 20 MG TAB PO SCH (08:30)
--- NOTE | 2021-05-05 11:04 | Discharge Summary ---
Date of Service May 05, 2021 Admission HPI Per Admitting Provider 36yo female presents with 1 month of ongoing facial pain and dental pain. She states that 4-5 weeks ago she had a small "sore" near the opening to the right nare. This then progressed to swelling and pain over the right maxillary area. She was seen here on 03/25/21 for this issue, given IV rocephin, and d/c home with PCN ALEJANDRO. The swelling/pain of right maxillary region improved. She saw her dentist in the interim, dental extractions were recommended, and a referral was made. However, due to insurance issues, she was told that she could not get in to see an oral surgeon for 1 year. Since seeing her dentist the right facial pain and swelling returned, prompting another ER visit on 04/30/21. She was placed on clindamycin during that ER visit. Despite compliance w/ clindamycin the pain/swelling has persisted. Denies fevers, but has had chills, fatigue, and mild anorexia. Has dental pain throughout the oral cavity. Right nostril irritation continues. No prior h/o MRSA or recurrent abscesses. Seen by Dr Dickerson in ER - he will be taking her to the OR today for I/D and dental extractions. Discharge Data Allergies Allergy/AdvReac Type Severity Reaction Status Date / Time No Known Allergies Allergy Verified 05/03/21 08:13 Consultations 05/03/21 13:04 Consult Oromaxillofacial Surgery Routine Procedures Performed Operation Date: 05/03/21 10:40 Actual Procedures p Incision and Drainage Facial Abscess, Extraction of Teeth # 3,7,8,9,10,11,13,19,20,21,22,28(Bilateral) - Dewey Dickerson DMD Ordered Studies 05/03/21 08:07 CT facial bones w con Stat Hospital Course (1) Periapical abscess with facial involvement: Large right maxillary facial abscess due to dental caries and periapical abscess. Seen in ER 03/25 (rocephin, d/c Augmentin), improved. Had seen dentist and recs for extraction but d/t insurance not able to get into for 1 year. Placed on Clindamycin however persisted CT SCAN OF THE FACIAL BONES IMPRESSION: * 1. There are numerous dental caries and periapical lucencies as above. Follow- up with dentistry is recommended. * 2. There is evidence of facial cellulitis overlying the anterior maxilla with a 2 cm abscess as detailed above.. Dr Dickerson Consulted POD#1 s/p Incision and Drainage Facial Abscess, Extraction of Teeth # 3,7,8,9,10,11,13,19,20,21,22,28(Bilateral) - Dewey Dickerson, DMD. EBL 10cc Clear liquid diet for breakfast Unasyn -- continue for another 24 hours then Augmentin at discharge. Cxs pending Continue massage, heat, wound care WBC 13.3k --> 11k h/h 12.8--> 11.9 -- acute blood loss anemia from surgery and dilutional from IVF D.C IVF MRSA nasal swab NEGATIVE Lactinex Oxycodone, Dilaudid prn pain -- utilizing IV for today more but suspect able to transition to more PO this evening through tomorrow Changed to full admission If pain controlled, possible d/c tomorrow and will have drain removal in office on May 07. Patient already has information regarding appointment (2) Dental caries: Numerous - s/p extraction as above No fevers, no murmur on exam -- low suspicion for SBE, but will obtain 2 sets of blood cultures given her elevated wbc count, chills/fatigue, and the chronic nature of her oral cavity troubles --> monitor See above (3) Anxiety and depression: Cont lexapro. (4) Fatigue: Fatigue certainly worse recently in setting of dental abscess. Improving TSH wnl 0.658 A1c 5.8 -- will need counseled on pre-DM (5) Obesity (BMI 30-39.9): BMI 38 TSH/A1c as above Weight loss/diet/exercise (6) Tobacco dependence: Nicoderm patch 7mg/24 hours. 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 Encouraged cessation, gisela to avoid dry socket (7) Pre-diabetes: A1c 5.8 -- education and f/u PCP Dispo: continued inpatient stay possible d/c in AM Discharge Plan Discharge Items Patient Disposition: Home - Self-Care Reason For Visit: FACIAL CELLULITIS/ABSCESS Discharge Diagnosis: acute facial infection Condition on Discharge: Good Goals: You have been hospitalized for an urgent problem which required surgery. During your stay at [facility], we have made an effort to correct the problem that brought you to the hospital while keeping you as comfortable as possible. Surgery and medications were used to bring your condition under control and your discharge instructions will include directions for any medications you should take after leaving the hospital. Please make sure to follow the advice of your surgeon regarding follow up with the surgeon and with your primary care provider. Activity: Resume your previous activity Lifting: Gradually increase as tolerated Bathing: No limitations Exercise/Sports: Gradually increase as tolerated Driving/Machine Use: Resume 1 day after discharge Weightbearing: Full weightbearing Non-emergency contact: Surgeon Call non-emergency contact if: you have any medication questions, your pain is worsening, your temperature is above 101.5, your wound has increased redness, your wound has increased drainage and your wound pain has increased Follow-up/Referrals: Clare Vasquez CRNP [Primary Care Provider] - Dewey Dickerson DMD [Physician] - Dietitian Info: clear--full until Dr Dickerson sees you on post op Diet: Clear liquid Diet Texture: Pureed (blended smooth) Diet Comment: as tolerated Addtl Attending Provider Instructions: ADDITIONAL ACTIVITY RECOMMENDATIONS: * [place] teeth after every meal. It is very important to keep your mouth clean to prevent infection. * Starting tonight rinse with the Peridex as directed then 2 x a day * it is very important to keep well hydrated, this prevents fever and possible dry socket pain SPECIAL CARE INSTRUCTIONS: *It is not uncommon that between day 2-4 that your swelling will be at its worst this is very normal, do not be alarmed. * Keep ice on the side of your face for the next 24 to 36 hours. This will help keep the swelling down. * After 36 hours, apply heat (hot water bottle or heating pad) for the next two days, as often as possible. * Tomorrow start rinsing your mouth with 1/2 teaspoon salt in 8 ounces warm water. This rinse should be used every 4-6 hours. * You may experience slight nausea. To prevent this, never take your medication on an empty stomach. If nauseated, take small sips of alejandro dolly until you feel better; then you may start on applesauce and toast. * Some swelling is common. It should gradually decrease within 4-5 days. * A certain amount of bleeding is to be expected. It is often possible to control mild oozing by placing folded gauze over the area and biting down for 30 minutes. If you are unable to control excessive bleeding, call Dr Dickerson at [phone] * You may experience some discomfort for a few days. If pain or swelling increases, Call Dr Dickerson * Return to the office for a follow up check up if one was given to you. ThursdayMAY 07 see card for time * If you do not have a follow up appointment please call the office at [phone] and set one up for 10-15 days after your surgery Addtl Thread Winder Provider Instructions: Your A1c was checked for diabetes and this was slightly elevated. You should follow up with your primary care provider regarding this. Stand-Alone Forms: [employer] [place], Smoking Cessation Medications and DC Order Prescriptions: No Action hydrocodone-acetaminophen 5-325 mg tablet 1 - 2 tab PO Q6H PRN (Reason: pain) Qty: 10 RF: 0 hydrocodone-acetaminophen 5-325 mg tablet 1 tab PO Q4H PRN (Reason: pain) Qty: 14 RF: 0 amoxicillin-pot clavulanate 875-125 mg tablet 1 tab PO Q12H Qty: 20 RF: 0 ondansetron HCl 8 mg tablet 8 mg PO Q8H PRN (Reason: nausea and vomiting) Qty: 10 RF: 0 clindamycin HCl 300 mg capsule 300 mg PO TID 10 Days Qty: 30 RF: 0 escitalopram oxalate 20 mg tablet 20 mg PO QAM RF: 0 Admission Data Admit Date/Time: 05/04/21 13:45 Attending Provider: Anne-Marie Figueroa Admit Provider: Virgil Mireles Primary Care Provider: Clare Vasquez Other Providers: Dewey Dickerson Coding Diagnoses Periapical abscess with facial involvement K04.7 Dental caries K02.9 Anxiety and depression F41.9; F32.9 Fatigue R53.83 Fatigue type: other Obesity (BMI 30-39.9) E66.9 Tobacco dependence F17.200 Pre-diabetes R73.03
[2021-05-05] MEDS: HYDROCODONE/ACETAMOPHEN 5/325MG TAB PO PRN ×2 (12:59→16:39)
--- NOTE | 2021-05-05 14:55 | Hospitalist Progress Note ---
Date of Service May 05, 2021 Assessment & Plan (1) Periapical abscess with facial involvement: Large right maxillary facial abscess due to dental caries and periapical abscess. Seen in ER 5/10 (rocephin, d/c Augmentin), improved. Had seen dentist and recs for extraction but d/t insurance not able to get into for 1 year. Placed on Clindamycin however persisted CT SCAN OF THE FACIAL BONES IMPRESSION: * 1. There are numerous dental caries and periapical lucencies as above. Follow- up with dentistry is recommended. * 2. There is evidence of facial cellulitis overlying the anterior maxilla with a 2 cm abscess as detailed above.. Dr Dickerson Consulted POD#2 s/p Incision and Drainage Facial Abscess, Extraction of Teeth # 3,7,8,9,10,11,13,19,20,21,22,28(Bilateral) - Dewey Dickerson, DMD. EBL 10cc Clear liquid diet for breakfast --> advanced to full liquid Unasyn --> change to Augmentin for this evening WBC now wnl, afebrile Prelim gs/cx low counts mixed oral microbiota Toradol, oxycodone for pain control today -- has not needed any further dilaudid Would like to stay overnight for continued monitoring and d/c in AM F/u appt on May [address] Dickerson for drain removal (2) Dental caries: Numerous - s/p extraction as above No fevers, no murmur on exam -- low suspicion for SBE, but will obtain 2 sets of blood cultures given her elevated wbc count, chills/fatigue, and the chronic nature of her oral cavity troubles --> NGTD See above (3) Anxiety and depression: Cont lexapro. (4) Fatigue: Fatigue certainly worse recently in setting of dental abscess. Improving TSH wnl 0.658 A1c 5.8 -- will need counseled on pre-DM (5) Obesity (BMI 30-39.9): BMI 38 TSH/A1c as above Weight loss/diet/exercise (6) Tobacco dependence: Nicoderm patch 7mg/24 hours. 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 Encouraged cessation, gisela to avoid dry socket (7) Pre-diabetes: A1c 5.8 -- education and f/u PCP Dispo: continued inpatient stay possible d/c in AM Admission and Anticipated Discharge Date Admission Date: May 04, 2021 Supervising Physician Co-Signing Physician Notes PA Supervision Note: I did not personally see or examine the patient today, but I verified all rivers points of KEVEN Ferreira's assessment and plan with the following exceptions/additions: None Subjective Patient evaluated this morning. Tolerated clear liquid diet yesterday without difficulty. Pain controlled with toradol and she got a dose of oxycodone this afternoon. Discussed can use ibuprofen and oxycodone at home. Oral abx with Augmentin. WBC wnl, afebrile. She does note swelling, but no issues with swallowing and this had decreased since yesterday. Advancing diet for lunch but not tolerated well and will stick with liquids. Discussed home today on those vs overnight. Patient to get back to me. Afternoon, patient feels more comfortable staying overnight and then d/c tomorrow on continued liquids until f/u visit with Dr. Dickerson on Thursday. Review of Systems Review of Systems: All systems reviewed & are unremarkable except as noted in HPI & below Physical Exam Constitutional: well developed, well nourished and + obese; no acute distress and no altered mental status Eyes: PERRL ENMT: Mouth: + poor dentition (numerous dental caries -- s/p extraction of multiple with drain to R upper ) R maxillary tenderness (decreased) Neck: trachea midline, no thyromegaly Respiratory: normal respiratory effort, lungs clear to auscultation Auscultation: + diminished lung sounds (bases) Cardiovascular: Rate/Rhythm: regular rate and regular rhythm Heart Sounds: normal S1 and normal S2; no murmur Vessels: posterior tibial pulses present and dorsalis pedis pulses present; no JVD Extremities: no edema Gastrointestinal (Abdomen): normal bowel sounds, soft, nontender, no hepatosplenomegaly Musculoskeletal: no cyanosis or clubbing, extremities motor strength 5/5 Skin: no rashes, warm and dry Neurologic: deep tendon reflexes 2+ bilaterally and moves all extremities Psychiatric: A+Ox3, euthymic affect Results & Data Results & Data ([facility]) Vital Signs (Past 12 Hours) Vital Signs Temp Pulse Resp BP Pulse Ox 05/05/21 07:55 36.6 C 59 L 16 107/66 91 Laboratory Results 05/05/21 05/05/21 Range/Units 06:23 06:23 WBC 10.28 (4.8-10.8) K/uL RBC 3.43 L (4.2-5.4) M/uL Hgb 10.0 L (12.0-16.0) g/dL Hct 32.0 L (37-47) % MCV 93.3 (80-100) fL MCH 29.2 (25-34) pg MCHC 31.3 L (32-36) g/dL RDW Std Deviation 52.8 H (36.4-46.3) fL RDW Coeff of Eddie 15.5 H (11.5-14.5) % Plt Count 330 (130-400) K/uL MPV 9.9 (7.4-10.4) fL Sodium 140 (136-145) mmol/L Potassium 3.7 (3.5-5.1) mmol/L Chloride 107 (98-107) mmol/L Carbon Dioxide 28 (21-32) mmol/L Anion Gap 5.0 (3-11) BUN 16 D (7-18) mg/dl Creatinine 0.51 L (0.6-1.2) mg/dl Est Cr Clr Drug Dosing 166.2 ml/min Est GFR ( Amer) 145.4 ml/min Est GFR (Non-Af Amer) 125.5 ml/min BUN/Creatinine Ratio 30.7 H (10-20) Glucose 91 (70-99) mg/dl Calcium 8.3 L (8.5-10.1) mg/dl PG Care Time/CCT Total # of Minutes Spent Total Time Spent with Patient: Total time spent is greater than 50% in coordination of care (as documented) at patient's floor/unit and/or counseling patient: Coding Level of Care Code 95532 Subseq Hosp Care Lvl 2 Diagnoses Periapical abscess with facial involvement K04.7 Dental caries K02.9 Anxiety and depression F41.9; F32.9 Fatigue R53.83 Fatigue type: other Obesity (BMI 30-39.9) E66.9 Tobacco dependence F17.200 Pre-diabetes R73.03 (1) Fatigue Fatigue type: other Qualified Code(s): R53.83 - Other fatigue
[2021-05-05] MEDS: AMOXICILLIN/CLAVULANATE 875 MG TAB PO SCH (16:39)
[2021-05-05] MEDS: HYDROmorphone INJ 0.5 MG/0.5 ML SYR IV PRN (20:19)
[2021-05-06] MEDS: HYDROmorphone INJ 0.5 MG/0.5 ML SYR IV PRN ×3 (00:19→11:25)
[2021-05-06] MEDS: AMOXICILLIN/CLAVULANATE 875 MG TAB PO SCH (09:05)
[2021-05-06] MEDS: KETOROLAC 30 MG/ML VIAL IV PRN (09:08)
[2021-05-06] MEDS: ESCITALOPRAM OXALATE 20 MG TAB PO SCH (09:08)
[2021-05-06] MEDS: ADVANCED PROBIOTIC 1250 MG CAPSULE PO SCH (09:08)
[2021-05-06] MEDS: NICOTINE 7 MG/24 HR TDSY TD SCH (09:10)
[2021-05-06] MEDS: HYDROCODONE/ACETAMOPHEN 5/325MG TAB PO PRN (10:33)
--- NOTE | 2021-05-06 17:50 | Discharge Summary ---
Date of Service May 06, 2021 Principal Diagnosis Facial abscess/tooth infections Discharge Exam Constitutional WD/WN, vitals as above Eyes EOM intact bilaterally; no conjunctival abnormality ENMT Mouth / Teeth: 1. Swollen. Edentulous. Neck trachea midline, no thyromegaly normal visual inspection Respiratory normal respiratory effort, lungs clear to auscultation no respiratory distress Cardiovascular RRR, no murmur, no edema Gastrointestinal (Abdomen) Inspection/Auscultation: abdomen normal to inspection; abdomen not distended Musculoskeletal no cyanosis or clubbing, extremities motor strength 5/5 Skin no rashes, warm and dry Neurologic moves all extremities and awake Psychiatric Orientation: alert, oriented to person and cooperative Discharge Data Allergies Allergy/AdvReac Type Severity Reaction Status Date / Time No Known Allergies Allergy Verified 05/03/21 08:13 Consultations 05/03/21 13:04 Consult Oromaxillofacial Surgery Routine Procedures Performed Operation Date: 05/03/21 10:40 Actual Procedures p Extraction of Teeth # 3,7,8,9,10,11,13,19,20,21,22,28(Bilateral) - Dewey Dickerson DMD s Incision and Drainage Facial Abscess(Bilateral) - Dewey Dickerson DMD Ordered Studies 05/03/21 08:07 CT facial bones w con Stat Hospital Course (1) Periapical abscess with facial involvement: Large right maxillary facial abscess due to dental caries and periapical abscess. Seen in ER 5/10 (rocephin, d/c Augmentin), improved. Had seen dentist and recs for extraction but d/t insurance not able to get into for [address] d on Clindamycin however persisted CT SCAN OF THE FACIAL BONES IMPRESSION: * 1. There are numerous dental caries and periapical lucencies as above. Follow- up with dentistry is recommended. * 2. There is evidence of facial cellulitis overlying the anterior maxilla with a 2 cm abscess as detailed above.. Dr Dickerson Consulted POD#2 s/p Incision and Drainage Facial Abscess, Extraction of Teeth # 3,7,8 ,9,10,11,13,19,20,21,22,28(Bilateral) - Dewey Dickerson DMD. EBL 10cc Clear liquid diet for breakfast --> advanced to full liquid Unasyn --> change to Augmentin for this evening WBC now wnl, afebrile Prelim gs/cx low counts mixed oral microbiota Toradol, oxycodone for pain control today -- has not needed any further dilaudid F/u appt on May [address] Dickerson for drain removal. Discharged on Augmentin and pain control. (2) Dental caries: Numerous - s/p extraction as above No fevers, no murmur on exam -- low suspicion for SBE, but will obtain 2 sets of blood cultures given her elevated wbc count, chills/fatigue, and the chronic nature of her oral cavity troubles --> NGTD See above (3) Anxiety and depression: Cont lexapro. (4) Fatigue: Fatigue certainly worse recently in setting of dental abscess. Improving TSH wnl 0.658 A1c 5.8 -- will need counseled on pre-DM (5) Obesity (BMI 30-39.9): BMI 38 TSH/A1c as above Weight loss/diet/exercise (6) Tobacco dependence: Nicoderm patch 7mg/24 hours. 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 Encouraged cessation, gisela to avoid dry socket (7) Pre-diabetes: A1c 5.8 -- education and f/u PCP Dispo: continued inpatient stay possible d/c in AM Total Time Total Time Spent Total Time Spent (In Minutes): 35 Discharge Plan Discharge Items Patient Disposition: Home - Self-Care Reason For Visit: FACIAL CELLULITIS/ABSCESS Discharge Diagnosis: Facial infection Condition on Discharge: Good Activity: Resume your previous activity Lifting: Gradually increase as tolerated Bathing: No limitations Exercise/Sports: Gradually increase as tolerated Driving/Machine Use: Resume 1 day after discharge Weightbearing: Full weightbearing Non-emergency contact: Surgeon Call non-emergency contact if: you have any medication questions, your pain is worsening, your temperature is above 101.5, your wound has increased redness, your wound has increased drainage and your wound pain has increased Follow-up/Referrals: Clare Vasquez CRNP [Primary Care Provider] - 05/20/21 10:30 am Dewey Dickerson DMD [Physician] - 05/07/21 2:45 pm Dietitian Info: clear--full until Dr Dickerson sees you on post op Diet: Clear liquid Diet Texture: Pureed (blended smooth) Diet Comment: as tolerated Addtl Attending Provider Instructions: ADDITIONAL ACTIVITY RECOMMENDATIONS: * [place] teeth after every meal. It is very important to keep your mouth clean to prevent infection. * Starting tonight rinse with the Peridex as directed then 2 x a day * it is very important to keep well hydrated, this prevents fever and possible dry socket pain SPECIAL CARE INSTRUCTIONS: *It is not uncommon that between day 2-4 that your swelling will be at its worst this is very normal, do not be alarmed. * Keep ice on the side of your face for the next 24 to 36 hours. This will help keep the swelling down. * After 36 hours, apply heat (hot water bottle or heating pad) for the next two days, as often as possible. * Tomorrow start rinsing your mouth with 1/2 teaspoon salt in 8 ounces warm water. This rinse should be used every 4-6 hours. * You may experience slight nausea. To prevent this, never take your medication on an empty stomach. If nauseated, take small sips of alejandro dolly until you feel better; then you may start on applesauce and toast. * Some swelling is common. It should gradually decrease within 4-5 days. * A certain amount of bleeding is to be expected. It is often possible to control mild oozing by placing folded gauze over the area and biting down for 30 minutes. If you are unable to control excessive bleeding, call Dr Dickerson at [phone] * You may experience some discomfort for a few days. If pain or swelling increases, Call Dr Dickerson * Return to the office for a follow up check up if one was given to you. ThursdayMAY 07 see card for time * If you do not have a follow up appointment please call the office at [phone] and set one up for 10-15 days after your surgery Addtl Compensation Associate Provider Instructions: Your A1c was checked for diabetes and this was slightly elevated at 5.8%, which is technically "pre-diabetes". You should follow up with your primary care provider regarding this. You will need to remain on a pureed liquid diet until seen by Dr. Dickerson on Thursday. You will continue on a course of oral antibiotics with Augmenting for a total of ten days. Oxycodone for pain medication to use as needed for breakthrough pain, but Tylenol for all other (please avoid exceeding 3,000mg in a 24 hour period of time). You can take ibuprofen as well but please note this can cause increased bleeding. You should ABSTAIN FROM SMOKING not only to prevent dry socket/complications with procedure as discussed, but to prevent buttermaker consequences like elevated blood pressure, cardiovascular disease/stroke/etc. You have remained on a nicotine patch while in the hospital and it is strongly encouraged to continue this to help with cessation. Please return to the emergency department with any fever, chills, chest pain, shortness of breath, uncontrolled pain or bleeding or for any other symptoms that are concerning for you. It has been a pleasure being a part of the medical team providing for you while you have been in the hospital. Take care! Pending Studies at Discharge: Yes Studies:: Blood cultures -- no growth to date Stand-Alone Forms: [facility], Opioid Pain Management, Smoking Cessation Medications and DC Order Prescriptions: New oxycodone-acetaminophen [Percocet] 5-325 mg tablet 1 tab PO Q4H PRN (Reason: pain) Qty: 14 RF: 0 Continued amoxicillin-pot clavulanate 875-125 mg tablet 1 tab PO Q12H Qty: 20 RF: 0 ondansetron HCl 8 mg tablet 8 mg PO Q8H PRN (Reason: nausea and vomiting) Qty: 10 RF: 0 escitalopram oxalate 20 mg tablet 20 mg PO QAM RF: 0 Discontinued hydrocodone-acetaminophen 5-325 mg tablet 1 - 2 tab PO Q6H PRN (Reason: pain) Qty: 10 RF: 0 hydrocodone-acetaminophen 5-325 mg tablet 1 tab PO Q4H PRN (Reason: pain) Qty: 14 RF: 0 clindamycin HCl 300 mg capsule 300 mg PO TID 10 Days Qty: 30 RF: 0 Discharge Orders: Discharge Order (Routine); Ordered 05/06/21 Ordered By: Sylvain Vazquez/Other Patient Handouts: 5 Steps for Eating Healthier, A1C Admission Data Admit Date/Time: 05/04/21 13:45 Attending Provider: Sylvain Fry Admit Provider: Virgil Mireles Primary Care Provider: Clare Vasquez Other Providers: Dewey Dickerson Other Interventions: Discharge Summary Assessment (RN) Last Done: 05/06/21 11:04 Coding Level of Care Code D/C Day Management >30 mins Diagnoses Periapical abscess with facial involvement K04.7 Dental caries K02.9 Anxiety and depression F41.9; F32.9 Fatigue R53.83 Fatigue type: other Obesity (BMI 30-39.9) E66.9 Tobacco dependence F17.200 Pre-diabetes R73.03
--- NOTE | 2021-05-08 13:32 | Operative Report ---
PG Post Operative Report Pre & Post Diagnosis Operation Date: 05/03/21 10:40 Pre-Op Diagnosis: Facial Cellulitis/Abscess Post-Op Diagnosis: Facial Cellulitis/Abscess I identified the patient and participated in the time-out.: Yes Procedure Operation Date: 05/03/21 10:40 Actual Procedures p Extraction of Teeth # 3,7,8,9,10,11,13,19,20,21,22,28(Bilateral) - Dewey Dickerson DMD s Incision and Drainage Facial Abscess(Bilateral) - Dewey Dickerson DMD Once cleared for surgery general anesthesia was achieved, the eyes were protected by the anesthesia dept criteria. A time out was take for patient ID, antibiotics, equipment and position verification once all agreed the procedure began. Local anesthesia using Marcaine with a vasoconstrictor ( 1.8 ml per site) given into Left/right inferior alveolar nerve and the maxilla/palate A throat pack was placed after the oral cavity was irrigated with saline. Once a surgical level of anesthesia was obtained and the local anesthesia was given time for the blocks the surgery was started. I turned my attention to the infection which was located in the right nasolabial fold with extension to the inferior orbital rim, vestibular fold and floor of the nose Incision and Drainage Using a 15 blade an incision was made lateral to the alveolar ridge in the swollen vestibular space. Once the incision was made a lot of pus extruded from the site. This drainage was cultured for anaerobic and aerobic bacteria. A curved hemostat was carefully placed into the infected space along the lateral nasal wall up to the inferior rim on the right side. More pus extruded from the site. Some further drainage was now allowed to escape. I palpated the floor of the nose, cheek and nasal area and no further drainage was expressed. The area was irrigated with at least 100 ml of NS solution. Before placing the 1/4 inch Luis drain I extracted the involved teeth to prevent re infection The involved teeth were as follows Extraction of Teeth # 3,7,8,9,10,11,13,19,20,21,22,28 I now turned my attention to remove the the following teeth# 3,7,8,9,10,11,13,19,20,21,22,28 Lower teeth # 19,20,21,22,28 all teeth [id number] CPT 99747 x 5 The full thick Muco-periosteal flap was made on the facial aspect around 19-20-21-22 as well as 28 The flap was reflected to expose the the subperiosteal space the bone adjacent to the teeth. The rogue was used to remove bone, the teeth were removed with a 301 elevator and dental forceps , the mental nerve was intact, there was a large amount of granulation tissue on the apex of these grossly infected and fractured/carious teeth Upper teeth # 3,7,8,9,10,11,13 all teeth D7140 CPT 85836 x 7 The full thick Muco-periosteal flap was made on the facial aspect around the upper teeth. The flap was reflected to expose the the subperiosteal space the bone adjacent to the teeth. The rogue was used to remove bone, the teeth were removed with a 301 elevator and dental forceps. There was a large amount of granulation tissue on the apex of these grossly infected and fractured/carious teeth These teeth were directly involved with the gross upper jaw and face swelling, removal was medically necessary to resolve the infection. Closure was obtained with a 2-0 chromic Placing the drain Once the teeth were removed I inserted a long 1/4 [place] drain from the mucobuccal fold to the inferior rim, the drain was sutured with a 2-0 chromic suture and trimmed.Good drainage was established When all the teeth were removed and the area was drained I inspected the sites to insure all bleeding was controlled. I removed the throat pack and suctioned the throat. Bilateral gauze pressure dressings were placed. All instrument and sponge count was correct. the patient was allowed to awake from the anesthesia. Once full awake the anesthesia tube was removed and the patient was taken to the recovery room with all vital sign stable. The patient tolerated the surgery very well. Patient will be transferred back to the floor I will see her tomorrow I will follow the patient in my office, Rx and instructions will be given upon discharge. Surgeon Dewey Dickerson, DMD Head Piece Assembler none Estimated Blood Loss 10 Findings Consistent with Post-Op Diagnosis Specimens I&D Description of Procedure I&D and extraction of teeth I attest to the content of the Intraoperative Record and any orders documented therein. Any exceptions are noted below.
== END 2021-05-06 13:00 | disposition home or self-care (01) | DRG 137 ==
LOC: 3N 07:49 → ED 07:49 → SUATTDRO 10:37 → 3N 12:30 → SUATTDRO 05-04 13:45